=== PATIENT | male | born 1970 | race Caucasian/White ===

== ENCOUNTER → 2019-04-05 20:06 | Outpatient (CLI) | payer OTHER, SELFPAY ==
--- NOTE | 2019-04-05 | DI.MRI.S_ITS ---
PROCEDURE: MR LUMBAR SPINE WO CON INDICATIONS: LOW BACK PAIN TECHNIQUE: Noncontrast sagittal T1 spin echo and T2 fast echo, sagittal STIR, axial T1 and T2 fast spin echo through the lumbar spine. In cases with scoliosis, additional coronal T2 fast spin echo may be performed. COMPARISON: None. FINDINGS: Image quality: Excellent. Alignment and Curvature: There is mild L5-S1 anterolisthesis secondary to bilateral L5 pars interarticularis defects. Bones: Marrow is of normal overall signal. No acute vertebral body compression fractures. Spinal Cord: Conus medullaris terminates at the L1 level. Visualized cord demonstrates normal signal and size. Paraspinous Soft Tissues: No paravertebral masses. L1-L2: Normal appearance. L2-L3: Normal appearance. L3-L4: Normal appearance. L4-L5: Normal appearance. L5-S1: Loss of disc signal. Mild, diffuse disc bulge. No central stenosis. Severe bilateral neural foraminal narrowing with compression of the exiting L5 nerve roots. Focal hypodensities are noted in the posterior annulus compatible with a fissure. IMPRESSION: 1. Grade 1 L5-S1 isthmic spondylolisthesis. 2. Mild L5-S1 degenerative disc disease. 3. No central stenosis. 4. Severe bilateral L5-S1 neural foraminal narrowing with compression of the exiting L5 nerve roots. Dictated by: Fela Espino MD, PhD on 04/06/2019 at 14:51 Approved by: Fela Espino MD, PhD on 04/06/2019 at 14:53
== END ==
PROVIDERS: Visit Provider Family Medicine
DX: M43.16 Spondylolisthesis, lumbar region (principal); M51.36 Other intervertebral disc degeneration, lumbar region
CPT/HCPCS: 72148

== ENCOUNTER → 2024-02-23 08:53 | Outpatient (CLI) | payer OTHER, SELFPAY | PROVIDERS: PCP Physician Assistant Surgical; Referring Provider Physician Assistant Surgical; Visit Provider Surgery | DX: I89.0 Lymphedema, not elsewhere classified (principal); L97.511 Non-pressure chronic ulcer of other part of right foot limited to breakdown of skin; L53.9 Erythematous condition, unspecified; F17.210 Nicotine dependence, cigarettes, uncomplicated | CPT/HCPCS: 29581; 97597; 99203; 99213 ==

== ENCOUNTER → 2024-02-25 08:43 | Outpatient (CLI) | payer OTHER, SELFPAY | PROVIDERS: PCP Physician Assistant Surgical; Referring Provider Physician Assistant Surgical; Visit Provider Surgery | DX: I89.0 Lymphedema, not elsewhere classified (principal); R60.0 Localized edema; L53.9 Erythematous condition, unspecified | CPT/HCPCS: 29581 ==

== ENCOUNTER → 2024-03-01 09:45 | Outpatient (CLI) | payer OTHER, SELFPAY | PROVIDERS: PCP Physician Assistant Surgical; Referring Provider Physician Assistant Surgical; Visit Provider Surgery | DX: L97.521 Non-pressure chronic ulcer of other part of left foot limited to breakdown of skin (principal); L53.9 Erythematous condition, unspecified; F17.210 Nicotine dependence, cigarettes, uncomplicated | CPT/HCPCS: 29581; 99213 ==

== ENCOUNTER → 2024-03-08 09:44 | Outpatient (CLI) | payer OTHER, SELFPAY | LOC: WC 09:44 | PROVIDERS: Family Provider Physician Assistant; PCP Physician Assistant Surgical; Referring Provider Physician Assistant Surgical; Visit Provider Surgery | DX: I89.0 Lymphedema, not elsewhere classified (principal); F17.210 Nicotine dependence, cigarettes, uncomplicated | CPT/HCPCS: 99213 ==

== ENCOUNTER 2024-05-23 13:00 | Outpatient (RCR) | payer OTHER, SELFPAY ==
--- NOTE | 2024-04-14 16:46 | PT.OIE ---
Current Diagnoses Lymphedema, not elsewhere classified (04/14/24) Soft tissue disorder, unspecified (04/14/24) Difficulty in walking, not elsewhere classified (04/14/24) Visit Care Team Role Provider Type Leigha Parisi PA-C Primary Care Provider Non-Staff Specialty: [facility] [address] [facility] [address], [place], [address] Fax: Email: Chele De La Paz PA-C Family Provider Non-Staff Specialty: Medical Address: [address] [place], [address] Email: Luis Miguel Madsen MD Attending Provider Physician Referring Provider Specialty: Wound Care Address: [address] [place] [address], [id number] Email: [email or web address] Physical Therapy Initial Evaluation PT-OP-A Visit Information Start: 04/14/24 08:04 Freq: Status: Active Protocol: Document 04/14/24 09:01 [facility] (Rec: 04/14/24 09:46 [facility] [id number]) Out-Patient Physical Therapy Visit Information Visit Information Visit Type Initial Evaluation Visit Start Time 08:15 Visit Stop Time 09:45 Visit Number 1 Number of SR. STRATEGIC SOURCING MANAGER Visits 0 Evaluation Information Evaluation Date 04/14/24 PT-OP-B Current Condition Start: 04/14/24 08:04 Freq: Status: Active Protocol: Document 04/14/24 09:01 [facility] (Rec: 04/14/24 09:46 [facility] [id number]) Current Condition History of Current Condition Onset Date December 2023 Current Complaints christie LE swelling History of Current Condition Acute onset swelling christie LE's an scrotum. , has seen pompom maker (negative for any cardiac involvement), vascular specialist (tests negative, veins good, flow good), CT scans negative christie groin lymph nodes enlarged, have decreased in size some per cancer doc. Another scan in 6 months. Sees open tenter operator 05/02/24 due to low calcium levels. Did have scrotal edema; wore jock strap; scrotal swelling better . Feet still very swollen, legs red, hips still swollen, states now has difficulty fitting in seats. . Uses a cane at times for walking. Has compression stockings (knee high) and Juzo wraps (lower legs only). Cant wear shoes. 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 Trying to wear compression, trying to increase his walking. Prior Treatments and Tests as above Future Testing and Treatments Planned open tenter operator 05/02/24 Treatment Goals Patient/Caregiver Goals decrease lymphedema, be able to return to work. Prior Functional Status Baseline Function- ADL's Independent Baseline Function- Mobility Independent Baseline Function- Gait indep, no restrictions or swelling Current Functional Impairments (Reported) Functional Limitations- ADL's increased time Functional Limitations- Mobility/Gait limited walking due to weight and discomfort of legs, trying to walk more as tolerated but challenging Functional Limitations- Work/School unable to work at this time PT-OP-C Subjective Start: 04/14/24 08:04 Freq: Status: Active Protocol: Document 04/14/24 09:01 [facility] (Rec: 04/14/24 16:41 [facility] [id number]) Patient Questionnaires Lymphedema Life Impact Score Lymphedema Score 49 OP-PT Pain Assessment Location christie LE Intensity 6 Scale Used Numeric (0 - 10) PT-OP-G Mobility & Gait Start: 04/14/24 08:04 Freq: Status: Active Protocol: Document 04/14/24 09:01 [facility] (Rec: 04/14/24 16:41 [facility] [id number]) OP Gait Assessment Gait Gait Assistance Required: Independent Assistive Devices Assistive Device None,Straight Cane Gait Deviations General Gait Pattern Decreased Stride Length, Decreased Feet Clearance PT-OP-H Neuro Start: 04/14/24 08:04 Freq: Status: Active Protocol: Document 04/14/24 09:01 [facility] (Rec: 04/14/24 16:41 [facility] [id number]) Sensation Evaluation Gross Sensation Gross Sensation Left LE Impaired,Right LE Impaired Sensation Description Paresthesia PT-OP-J Posture/Palpation/Skin Start: 04/14/24 08:04 Freq: Status: Active Protocol: Document 04/14/24 09:01 [facility] (Rec: 04/14/24 16:41 [facility] [id number]) Palpation Assessment Location christie LE's Palpation Findings Edema Palpation Details redness, no increased warmth Skin Assessment Edema Assessment christie LE's Edema Type Pitting Edema Degree 4+ Edema Appearance Discolored,Shiny,Taut,Weeping Subjective Edema Description Pain,Tightness Comments reports scratched his left leg a couple days ago and has been weeping fluid; asked Dr. Madsen to come take a look at his leg. Dr. Madsen advised him on wound care and advised him to schedule with wound care clinic PT-OP-K Range of Motion Start: 04/14/24 08:04 Freq: Status: Active Protocol: Document 04/14/24 09:01 [facility] (Rec: 04/14/24 16:41 [facility] [id number]) Hip Goniometric Range of Motion Hip christie Hip ROM WFL No Comments mild decrease all motions Hip ROM Limitations Hip ROM Limitations Swelling Knee Goniometric Range of Motion Knee christie Knee ROM WFL No Knee ROM Limitations Knee ROM Limitations Swelling Ankle and Foot Goniometric Range of Motion Ankle and Foot christie Ankle/Foot ROM WFL No Dorsiflexion with Knee Flexed 5 Dorsiflexion with Knee Extended 0 Plantarflexion 15 Inversion 20 Ankle and Foot ROM Limitations ROM Limitations Soft Tissue Tightness,Swelling PT-OP-N Lymphedema Start: 04/14/24 08:04 Freq: Status: Active Protocol: Document 04/14/24 09:01 [facility] (Rec: 04/14/24 09:46 [facility] [id number]) Lymphedema Measurements Lower Extremity Circumference Measurements right MT Heads 26.8 cm Mid-foot 29.5 cm Medial Malleolus 35.7 cm 10 cm From Medial Malleolus 32.8 cm 20 cm From Medial Malleolus 45.8 cm 30 cm From Medial Malleolus 51 cm 40 cm From Medial Malleolus 44.7 cm 50 cm From Medial Malleolus 54.4 cm 60 cm From Medial Malleolus 61.3 cm 70 cm From Medial Malleolus 73.8 cm 80 cm From Medial Malleolus 81.6 cm Knee Joint 52 cm left MT Heads 28.2 cm Mid-foot 29.6 cm Medial Malleolus 36.7 cm 10 cm From Medial Malleolus 31.8 cm 20 cm From Medial Malleolus 43.8 cm 30 cm From Medial Malleolus 51.9 cm 40 cm From Medial Malleolus 46.2 cm 50 cm From Medial Malleolus 54.5 cm 60 cm From Medial Malleolus 63.8 cm 70 cm From Medial Malleolus 71.3 cm 80 cm From Medial Malleolus 79.3 cm Knee Joint 50.9 cm - waist 133.4 hips 138 Comments Lymphedema Comments Patient reports scrotal edema resolved right now, continues to monitor PT-OP-Q Treatments Start: 04/14/24 08:04 Freq: Status: Active Protocol: Document 04/14/24 09:01 [facility] (Rec: 04/14/24 16:41 [facility] [id number]) Lymphedema Treatment Manual Lymphatic Drainage Location christie LE's Duration 12 min Comments instruction Sequential Lymphedema Exercises Location instructed and issued handout Compression Garment Assessment Compression Garment Assessment Details discussed options, advised to obtain compression shorts to help with proximal swelling and hold up lymphedema bandages Patient Education Lymphedema Pathology instructed Lymphedema Prevention instructed and issued handout Lymphedema Precautions instructed and issued handout Compression Garments instructed and issued handout Self Manual Lymphatic Drainage instructed and issued handout Sequential Lymphedema Exercises instructed and issued handout PT-OP-T Assessment and Plan Start: 04/14/24 08:04 Freq: Status: Active Protocol: Document 04/14/24 09:01 [facility] (Rec: 04/14/24 16:41 [facility] [id number]) Physical Therapy Assessment Rehab Potential Rehabilitation Potential Good Evaluation Complexity Number of Personal Factors/Comorbidities 1-2 Number of Body Systems Impaired 3 Clinical Presentation at Evaluation Evolving Impairments Impairments Activity Tolerance,Edema,ROM Goals Three Impairment limited walking due to lymphedema, frequently uses cane, unable to work Short Term Goal (STG) Patient will be able to walk for 30 minutes without device without difficulty STG Duration 05/17/24 Pediatric Nephrologist Goal (LTG) Patient will be able to stand and walk sufficient to be able to return to work LTG Duration 07/15/24 Two Impairment lymphedema life impact scale 49% Short Term Goal (STG) decrease lymphedema life impact scale to no greater than 35% STG Duration 05/17/24 Pediatric Nephrologist Goal (LTG) decrease lymphedema life impact scale to no greater than 15% as measure of reduced lymphedema, improved function and quality of life. LTG Duration 07/15/24 One Impairment lymphedema christie LE's Short Term Goal (STG) Patient will be instructed in all aspects of lymphedema self -care to include skin care, elevation, self-massage, self- bandaging/compression options, and lymphedema exercises. STG Duration 05/17/24 Pediatric Nephrologist Goal (LTG) Decrease patient?s lymphedema to a stable level (no increase or decrease greater than 1 cm over the course of 1 week), patient to be independent with all aspects of self-care for lymphedema, and will obtain appropriate compression garment for lymphedema management in the home. LTG Duration 07/15/24 Assessment Summary Assessment Patient presents to PT with function-limiting lymphedema bilateral LE's from toes to hips of unknown cause. Had scrotal edema but reports that has resolved due to wound care staff recommending Juzo jock strap. Had christie LE open wounds which have resolved except for new onset wound left godinez. Due to lymphedema in upper legs and hips reports it is not difficult for him to fit into chairs, his ROM is limited in christie LE's all joints due to lymphedema, and his walking is very limited due to the weight of his legs. He has had multiple medical tests which have been negative except for CT showing enlarged lymph nodes in his groin, most recent CT has shown decrease in lymph node size. Is being watched by an oncologist. Next planned test is open tenter operator 05/02/24. States he has knee high compression stockings and lower leg Juzo compression alternative velcro wraps, but nothing for feet but didn't wear to PT, no compression more proximal except has worn Juzo jock strap for scrotal edema which helped to resolve that swelling. Feel patient will need full length compression in his LE's to waist for best lymphedema management given his presentation. Also feel he may benefit from sequential pneumatic pump to assist with self management in the home. New weeping open wound anterior left godinez due to patient itching dry skin, has been referred back to wound care clinic. Feel patient will benefit from PT for lymphedema management. Initiated Complete Decongestive Therapy today. POC was discussed and patient was in agreement. Physical Therapy Plan Frequency and Duration Frequency of Treatment 20 visits Duration of treatment (weeks) 12 Plan of Care Start Date 04/14/24 Plan of Care End Date 07/15/24 Therapeutic Interventions Therapeutic Interventions Home Exercise Program, Lymphedema Management,Manual Therapy,Patient/Caregiver Education,Self-Care/Home Management,Soft Tissue Mobilization,Therapeutic Activities,Therapeutic Exercises Modalities Vasopneumatic Devices Next Visit Focus/Plan Next Note Type Treatment Note Next Visit Plan Assess response to lymphedema bandaging, continue CDT. Assess current compression garments if brings in.
--- NOTE | 2024-04-14 16:46 | PT.OPPOC ---
Physical, Occupational & Speech Therapy At [facility] Current Diagnoses Lymphedema, not elsewhere classified (04/14/24) Soft tissue disorder, unspecified (04/14/24) Difficulty in walking, not elsewhere classified (04/14/24) Visit Care Team Role Provider Type Leigha Parisi PA-C Primary Care Provider Non-Staff Specialty: Medical Address: [address] [place] [address], [facility], [place], [address] Fax: Email: Chele DeL a Paz PA-C Family Provider Non-Staff Specialty: Medical Address: [address] [place], [address] Email: Luis Miguel Madsen MD Attending Provider Physician Referring Provider Specialty: Wound Care Address: [address] [place] [address], [address] Email: [email or web address] Plan Of Care PT-OP-B Current Condition Start: 04/14/24 08:04 Freq: Status: Active Protocol: Document 04/14/24 09:01 [facility] (Rec: 04/14/24 09:46 [facility] [id number]) Current Condition History of Current Condition Onset Date December 2023 Current Complaints christie LE swelling History of Current Condition Acute onset swelling christie LE's an scrotum. , has seen yarn skeins examiner (negative for any cardiac involvement), vascular specialist (tests negative, veins good, flow good), CT scans negative christie groin lymph nodes enlarged, have decreased in size some per cancer doc. Another scan in 6 months. Sees crystal calibrator 05/02/24 due to low calcium levels. Did have scrotal edema; wore jock strap; scrotal swelling better . Feet still very swollen, legs red, hips still swollen, states now has difficulty fitting in seats. . Uses a cane at times for walking. Has compression stockings (knee high) and Juzo wraps (lower legs only). Cant wear shoes. 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 Trying to wear compression, trying to increase his walking. Prior Treatments and Tests as above Future Testing and Treatments Planned crystal calibrator 05/02/24 Treatment Goals Patient/Caregiver Goals decrease lymphedema, be able to return to work. Prior Functional Status Baseline Function- ADL's Independent Baseline Function- Mobility Independent Baseline Function- Gait indep, no restrictions or swelling Current Functional Impairments (Reported) Functional Limitations- ADL's increased time Functional Limitations- Mobility/Gait limited walking due to weight and discomfort of legs, trying to walk more as tolerated but challenging Functional Limitations- Work/School unable to work at this time PT-OP-T Assessment and Plan Start: 04/14/24 08:04 Freq: Status: Active Protocol: Document 04/14/24 09:01 [facility] (Rec: 04/14/24 16:41 [facility] [id number]) Physical Therapy Assessment Rehab Potential Rehabilitation Potential Good Evaluation Complexity Number of Personal Factors/Comorbidities 1-2 Number of Body Systems Impaired 3 Clinical Presentation at Evaluation Evolving Impairments Impairments Activity Tolerance,Edema,ROM Goals Three Impairment limited walking due to lymphedema, frequently uses cane, unable to work Short Term Goal (STG) Patient will be able to walk for 30 minutes without device without difficulty STG Duration 05/17/24 Jail Goal (LTG) Patient will be able to stand and walk sufficient to be able to return to work LTG Duration 07/15/24 Two Impairment lymphedema life impact scale 49% Short Term Goal (STG) decrease lymphedema life impact scale to no greater than 35% STG Duration 05/17/24 Jail Goal (LTG) decrease lymphedema life impact scale to no greater than 15% as measure of reduced lymphedema, improved function and quality of life. LTG Duration 07/15/24 One Impairment lymphedema christie LE's Short Term Goal (STG) Patient will be instructed in all aspects of lymphedema self -care to include skin care, elevation, self-massage, self- bandaging/compression options, and lymphedema exercises. STG Duration 05/17/24 Jail Goal (LTG) Decrease patient?s lymphedema to a stable level (no increase or decrease greater than 1 cm over the course of 1 week), patient to be independent with all aspects of self-care for lymphedema, and will obtain appropriate compression garment for lymphedema management in the home. LTG Duration 07/15/24 Assessment Summary Assessment Patient presents to PT with function-limiting lymphedema bilateral LE's from toes to hips of unknown cause. Had scrotal edema but reports that has resolved due to wound care staff recommending Juzo jock strap. Had christie LE open wounds which have resolved except for new onset wound left godinez. Due to lymphedema in upper legs and hips reports it is not difficult for him to fit into chairs, his ROM is limited in christie LE's all joints due to lymphedema, and his walking is very limited due to the weight of his legs. He has had multiple medical tests which have been negative except for CT showing enlarged lymph nodes in his groin, most recent CT has shown decrease in lymph node size. Is being watched by an oncologist. Next planned test is crystal calibrator 05/02/24. States he has knee high compression stockings and lower leg Juzo compression alternative velcro wraps, but nothing for feet but didn't wear to PT, no compression more proximal except has worn Juzo jock strap for scrotal edema which helped to resolve that swelling. Feel patient will need full length compression in his LE's to waist for best lymphedema management given his presentation. Also feel he may benefit from sequential pneumatic pump to assist with self management in the home. New weeping open wound anterior left godinez due to patient itching dry skin, has been referred back to wound care clinic. Feel patient will benefit from PT for lymphedema management. Initiated Complete Decongestive Therapy today. POC was discussed and patient was in agreement. Physical Therapy Plan Frequency and Duration Frequency of Treatment 20 visits Duration of treatment (weeks) 12 Plan of Care Start Date 04/14/24 Plan of Care End Date 07/15/24 Therapeutic Interventions Therapeutic Interventions Home Exercise Program, Lymphedema Management,Manual Therapy,Patient/Caregiver Education,Self-Care/Home Management,Soft Tissue Mobilization,Therapeutic Activities,Therapeutic Exercises Modalities Vasopneumatic Devices Next Visit Focus/Plan Next Note Type Treatment Note Next Visit Plan Assess response to lymphedema bandaging, continue CDT. Assess current compression garments if brings in. Plan of Care Dates Plan of Care Start Date 04/14/24 Plan of Care End Date 07/15/24 Electronically Signed by: Judi Hernandez, PT 04/14/24 3340 If you are in agreement with this Plan of Care, please return a signed and dated copy. I have reviewed this Plan of Care and certify that the skilled therapy services above are required to meet the patient?s needs. Physician Signature Date Printed Name and Credentials Clinical Instructor Signature Printed Name and Credentials
--- NOTE | 2024-04-20 11:52 | PT.OTN ---
Current Diagnoses Lymphedema, not elsewhere classified (04/20/24) Soft tissue disorder, unspecified (04/20/24) Difficulty in walking, not elsewhere classified (04/20/24) Physical Therapy Treatment Note PT-OP-A Visit Information Start: 04/14/24 08:04 Freq: Status: Active Protocol: Document 04/20/24 10:27 [facility] (Rec: 04/20/24 11:01 [facility] [id number]) Out-Patient Physical Therapy Visit Information Visit Information Visit Type Treatment Note Visit Start Time 10: Visit Stop Time 12:00 Visit Number 2 Evaluation Information Evaluation Date 04/14/24 PT-OP-B Current Condition Start: 04/14/24 08:04 Freq: Status: Active Protocol: Document 04/20/24 10:27 [facility] (Rec: 04/20/24 11:01 [facility] [id number]) Current Condition History of Current Condition Onset Date December 2023 Current Complaints christie LE swelling History of Current Condition Acute onset swelling christie LE's an scrotum. , has seen customer account manager (negative for any cardiac involvement), vascular specialist (tests negative, veins good, flow good), CT scans negative christie groin lymph nodes enlarged, have decreased in size some per cancer doc. Another scan in 6 months. Sees clinic coordinator 05/02/24 due to low calcium levels. Did have scrotal edema; wore jock strap; scrotal swelling better . Feet still very swollen, legs red, hips still swollen, states now has difficulty fitting in seats. . Uses a cane at times for walking. Has compression stockings (knee high) and Juzo wraps (lower legs only). Cant wear shoes. 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 Trying to wear compression, trying to increase his walking. Prior Treatments and Tests as above Future Testing and Treatments Planned clinic coordinator 05/02/24 Treatment Goals Patient/Caregiver Goals decrease lymphedema, be able to return to work. PT-OP-C Subjective Start: 04/14/24 08:04 Freq: Status: Active Protocol: Document 04/20/24 10:27 [facility] (Rec: 04/20/24 11:01 [facility] [id number]) OP-PT Subjective Patient Comments Patient Comments Ordered compression shorts, haven't come yet. Let bandaging on until Thursday, couldn't rewrap. Feet started to swell after. Wasn't sure if toe wraps helpful. Is going to order Juzo foot wraps but doesn't know size, needs PT help. When took bandaging off noticed significant decrease in swelling. PT-OP-G Mobility & Gait Start: 04/14/24 08:04 Freq: Status: Active Protocol: Document 04/14/24 09:01 [facility] (Rec: 04/14/24 16:41 [facility] [id number]) OP Gait Assessment Gait Gait Assistance Required: Independent Assistive Devices Assistive Device None,Straight Cane Gait Deviations General Gait Pattern Decreased Stride Length, Decreased Feet Clearance PT-OP-H Neuro Start: 04/14/24 08:04 Freq: Status: Active Protocol: Document 04/14/24 09:01 [facility] (Rec: 04/14/24 16:41 [facility] [id number]) Sensation Evaluation Gross Sensation Gross Sensation Left LE Impaired,Right LE Impaired Sensation Description Paresthesia PT-OP-J Posture/Palpation/Skin Start: 04/14/24 08:04 Freq: Status: Active Protocol: Document 04/14/24 09:01 [facility] (Rec: 04/14/24 16:41 [facility] [id number]) Palpation Assessment Location christie LE's Palpation Findings Edema Palpation Details redness, no increased warmth Skin Assessment Edema Assessment christie LE's Edema Type Pitting Edema Degree 4+ Edema Appearance Discolored,Shiny,Taut,Weeping Subjective Edema Description Pain,Tightness Comments reports scratched his left leg a couple days ago and has been weeping fluid; asked Dr. Madsen to come take a look at his leg. Dr. Madsen advised him on wound care and advised him to schedule with wound care clinic Other Assessments Skin Assessment Comments dry, flaky skin anterior shins , hyperkeratosis, 2 cm by 3cm open wound anterior left godinez weeping yellowish thin fluid, reddish discoloration lower legs and feet without excess warmth. Fibrosis christie lower legs. PT-OP-K Range of Motion Start: 04/14/24 08:04 Freq: Status: Active Protocol: Document 04/14/24 09:01 [facility] (Rec: 04/14/24 16:41 [facility] [id number]) Hip Goniometric Range of Motion Hip christie Hip ROM WFL No Comments mild decrease all motions Hip ROM Limitations Hip ROM Limitations Swelling Knee Goniometric Range of Motion Knee christie Knee ROM WFL No Knee ROM Limitations Knee ROM Limitations Swelling Ankle and Foot Goniometric Range of Motion Ankle and Foot christie Ankle/Foot ROM WFL No Dorsiflexion with Knee Flexed 5 Dorsiflexion with Knee Extended 0 Plantarflexion 15 Inversion 20 Ankle and Foot ROM Limitations ROM Limitations Soft Tissue Tightness,Swelling PT-OP-N Lymphedema Start: 04/14/24 08:04 Freq: Status: Active Protocol: Document 04/20/24 10:27 [facility] (Rec: 04/20/24 11:01 [facility] [id number]) Lymphedema Measurements Lower Extremity Circumference Measurements right MT Heads 25.8 cm Mid-foot 28.8 cm Medial Malleolus 37.2 cm 10 cm From Medial Malleolus 32.8 cm 20 cm From Medial Malleolus 45.7 cm 30 cm From Medial Malleolus 50.5 cm 40 cm From Medial Malleolus 44.3 cm 50 cm From Medial Malleolus 53.9 cm 60 cm From Medial Malleolus 61.3 cm 70 cm From Medial Malleolus 75 cm 80 cm From Medial Malleolus 83 cm Knee Joint 50.1 cm left MT Heads 27.7 cm Mid-foot 28.7 cm Medial Malleolus 34.9 cm 10 cm From Medial Malleolus 31.5 cm 20 cm From Medial Malleolus 43.3 cm 30 cm From Medial Malleolus 50.3 cm 40 cm From Medial Malleolus 44.4 cm 50 cm From Medial Malleolus 53.7 cm 60 cm From Medial Malleolus 63.8 cm 70 cm From Medial Malleolus 75.7 cm 80 cm From Medial Malleolus 83.3 cm Knee Joint 47 cm PT-OP-Q Treatments Start: 04/14/24 08:04 Freq: Status: Active Protocol: Document 04/20/24 10:27 [facility] (Rec: 04/20/24 11:52 [facility] [id number]) Lymphedema Treatment Manual Lymphatic Drainage Location christie LE's Duration 45 Lymphedema Wrapping Body Location christie LE's Materials Tricofix size G, Artiflex (2), Komprex kidneys, Comprilan (6 ,8, 10), trial no toe wraps today. Patient compression shorts should come tomorrow. Consider upper leg bandaging. Sequential Lymphedema Exercises Location reviewed Compression Garment Assessment Compression Garment Assessment Details Patient did not bring Patient Education Lymphedema Pathology reviewed Lymphedema Prevention reviewed Lymphedema Precautions reviewed Compression Garments reviewed Self Manual Lymphatic Drainage reviewed Sequential Lymphedema Exercises reviewed PT-OP-T Assessment and Plan Start: 04/14/24 08:04 Freq: Status: Active Protocol: Document 04/20/24 10:27 [facility] (Rec: 04/20/24 11:01 [facility] [id number]) Physical Therapy Assessment Impairments Impairments Activity Tolerance,Edema,ROM Goals Three Impairment limited walking due to lymphedema, frequently uses cane, unable to work Short Term Goal (STG) Patient will be able to walk for 30 minutes without device without difficulty STG Duration 05/17/24 Seam Stayer Goal (LTG) Patient will be able to stand and walk sufficient to be able to return to work LTG Duration 07/15/24 Two Impairment lymphedema life impact scale 49% Short Term Goal (STG) decrease lymphedema life impact scale to no greater than 35% STG Duration 05/17/24 Usp Goal (LTG) decrease lymphedema life impact scale to no greater than 15% as measure of reduced lymphedema, improved function and quality of life. LTG Duration 07/15/24 One Impairment lymphedema christie LE's Short Term Goal (STG) Patient will be instructed in all aspects of lymphedema self -care to include skin care, elevation, self-massage, self- bandaging/compression options, and lymphedema exercises. STG Duration 05/17/24 Usp Goal (LTG) Decrease patient?s lymphedema to a stable level (no increase or decrease greater than 1 cm over the course of 1 week), patient to be independent with all aspects of self-care for lymphedema, and will obtain appropriate compression garment for lymphedema management in the home. LTG Duration 07/15/24 Assessment Summary Assessment Significant decrease in circumferential measurements noted today despite not being bandaged since Thursday, has been using Juzo wraps lower legs, going to order Juzo wraps for feet. Physical Therapy Plan Frequency and Duration Frequency of Treatment 20 visits Duration of treatment (weeks) 12 Plan of Care Start Date 04/14/24 Plan of Care End Date 07/15/24 Therapeutic Interventions Therapeutic Interventions Home Exercise Program, Lymphedema Management,Manual Therapy,Patient/Caregiver Education,Self-Care/Home Management,Soft Tissue Mobilization,Therapeutic Activities,Therapeutic Exercises Modalities Vasopneumatic Devices Next Visit Focus/Plan Next Note Type Treatment Note Next Visit Plan Continue CDT. ASsess fit of compression tights if received , continue patient training.
--- NOTE | 2024-04-21 10:47 | PT.OTN ---
Current Diagnoses Lymphedema, not elsewhere classified (04/21/24) Soft tissue disorder, unspecified (04/21/24) Difficulty in walking, not elsewhere classified (04/21/24) Physical Therapy Treatment Note PT-OP-A Visit Information Start: 04/14/24 08:04 Freq: Status: Active Protocol: Document 04/21/24 08:10 [facility] (Rec: 04/21/24 09:06 [facility] [id number]) Out-Patient Physical Therapy Visit Information Visit Information Visit Type Treatment Note Visit Start Time 08:15 Visit Stop Time 09:45 Visit Number 3 Evaluation Information Evaluation Date 04/14/24 PT-OP-B Current Condition Start: 04/14/24 08:04 Freq: Status: Active Protocol: Document 04/21/24 08:10 [facility] (Rec: 04/21/24 09:06 [facility] [id number]) Current Condition History of Current Condition Onset Date December 2023 Current Complaints christie LE swelling History of Current Condition Acute onset swelling christie LE's an scrotum. , has seen video game developer (negative for any cardiac involvement), vascular specialist (tests negative, veins good, flow good), CT scans negative christie groin lymph nodes enlarged, have decreased in size some per cancer doc. Another scan in 6 months. Sees classification officer 05/02/24 due to low calcium levels. Did have scrotal edema; wore jock strap; scrotal swelling better . Feet still very swollen, legs red, hips still swollen, states now has difficulty fitting in seats. . Uses a cane at times for walking. Has compression stockings (knee high) and Juzo wraps (lower legs only). Cant wear shoes. 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 Trying to wear compression, trying to increase his walking. Prior Treatments and Tests as above Future Testing and Treatments Planned classification officer 05/02/24 PT-OP-C Subjective Start: 04/14/24 08:04 Freq: Status: Active Protocol: Document 04/21/24 08:10 [facility] (Rec: 04/21/24 09:06 [facility] [id number]) OP-PT Subjective Patient Comments Patient Comments Patient comes to PT still in bandages, brought Tubigrip, old compression stockings, and newer tighter . Compression tights should be here today, compresson wraps for feet on Thursday. PT-OP-G Mobility & Gait Start: 04/14/24 08:04 Freq: Status: Active Protocol: Document 04/14/24 09:01 [facility] (Rec: 04/14/24 16:[address] [facility] [id number]) OP Gait Assessment Gait Gait Assistance Required: Independent Assistive Devices Assistive Device None,Straight Cane Gait Deviations General Gait Pattern Decreased Stride Length, Decreased Feet Clearance PT-OP-H Neuro Start: 04/14/24 08:04 Freq: Status: Active Protocol: Document 04/14/24 09:01 [facility] (Rec: 04/14/24 16:[address] [facility] [id number]) Sensation Evaluation Gross Sensation Gross Sensation Left LE Impaired,Right LE Impaired Sensation Description Paresthesia PT-OP-J Posture/Palpation/Skin Start: 04/14/24 08:04 Freq: Status: Active Protocol: Document 04/14/24 09:01 [facility] (Rec: 04/14/24 16:[address] [facility] [id number]) Palpation Assessment Location christie LE's Palpation Findings Edema Palpation Details redness, no increased warmth Skin Assessment Edema Assessment christie LE's Edema Type Pitting Edema Degree 4+ Edema Appearance Discolored,Shiny,Taut,Weeping Subjective Edema Description Pain,Tightness Comments reports scratched his left leg a couple days ago and has been weeping fluid; asked Dr. Madsen to come take a look at his leg. Dr. Madsen advised him on wound care and advised him to schedule with wound care clinic Other Assessments Skin Assessment Comments dry, flaky skin anterior shins , hyperkeratosis, 2 cm by 3cm open wound anterior left godinez weeping yellowish thin fluid, reddish discoloration lower legs and feet without excess warmth. Fibrosis christie lower legs. PT-OP-K Range of Motion Start: 04/14/24 08:04 Freq: Status: Active Protocol: Document 04/14/24 09:01 [facility] (Rec: 04/14/24 16:41 [facility] [id number]) Hip Goniometric Range of Motion Hip christie Hip ROM WFL No Comments mild decrease all motions Hip ROM Limitations Hip ROM Limitations Swelling Knee Goniometric Range of Motion Knee christie Knee ROM WFL No Knee ROM Limitations Knee ROM Limitations Swelling Ankle and Foot Goniometric Range of Motion Ankle and Foot christie Ankle/Foot ROM WFL No Dorsiflexion with Knee Flexed 5 Dorsiflexion with Knee Extended 0 Plantarflexion 15 Inversion 20 Ankle and Foot ROM Limitations ROM Limitations Soft Tissue Tightness,Swelling PT-OP-N Lymphedema Start: 04/14/24 08:04 Freq: Status: Active Protocol: Document 04/21/24 08:10 [facility] (Rec: 04/21/24 09:06 [facility] [id number]) Lymphedema Measurements Lower Extremity Circumference Measurements right MT Heads 26.7 cm Mid-foot 27 cm Medial Malleolus 33.3 cm 10 cm From Medial Malleolus 29.7 cm 20 cm From Medial Malleolus 41.5 cm 30 cm From Medial Malleolus 47.7 cm 40 cm From Medial Malleolus 43.3 cm 50 cm From Medial Malleolus 53.3 cm 60 cm From Medial Malleolus 64 cm 70 cm From Medial Malleolus 76.5 cm 80 cm From Medial Malleolus 85 cm Knee Joint 48.8 cm left MT Heads 26.8 cm Mid-foot 27.7 cm Medial Malleolus 33.8 cm 10 cm From Medial Malleolus 29.4 cm 20 cm From Medial Malleolus 43.3 cm 30 cm From Medial Malleolus 48.3 cm 40 cm From Medial Malleolus 45.7 cm 50 cm From Medial Malleolus 53.3 cm 60 cm From Medial Malleolus 64.2 cm 70 cm From Medial Malleolus 75.4 cm 80 cm From Medial Malleolus 82.7 cm Knee Joint 52 cm PT-OP-Q Treatments Start: 04/14/24 08:04 Freq: Status: Active Protocol: Document 04/21/24 08:10 [facility] (Rec: 04/21/24 10:47 [facility] [id number]) Lymphedema Treatment Manual Lymphatic Drainage Location christie LE's Duration 45 Comments sequential pneumatic pump at 40 mm Hg on side opposite to one being worked on. Lymphedema Wrapping Body Location christie LE's MTP's to upper thighs Materials Tricofix size G, Artiflex (24) , Komprex kidneys, Comprilan ( 6,8, 10, 10, 12x2), Patient compression shorts should come later today and patient advised to put on over for proximal compression and to hold bandages up PT-OP-T Assessment and Plan Start: 04/14/24 08:04 Freq: Status: Active Protocol: Document 04/21/24 08:10 [facility] (Rec: 04/21/24 09:06 [facility] [id number]) Physical Therapy Assessment Goals Three Impairment limited walking due to lymphedema, frequently uses cane, unable to work Short Term Goal (STG) Patient will be able to walk for 30 minutes without device without difficulty STG Duration 05/17/24 Service Crew Supervisor Goal (LTG) Patient will be able to stand and walk sufficient to be able to return to work LTG Duration 07/15/24 Two Impairment lymphedema life impact scale 49% Short Term Goal (STG) decrease lymphedema life impact scale to no greater than 35% STG Duration 05/17/24 Snf Goal (LTG) decrease lymphedema life impact scale to no greater than 15% as measure of reduced lymphedema, improved function and quality of life. LTG Duration 07/15/24 One Impairment lymphedema christie LE's Short Term Goal (STG) Patient will be instructed in all aspects of lymphedema self -care to include skin care, elevation, self-massage, self- bandaging/compression options, and lymphedema exercises. STG Duration 05/17/24 Snf Goal (LTG) Decrease patient?s lymphedema to a stable level (no increase or decrease greater than 1 cm over the course of 1 week), patient to be independent with all aspects of self-care for lymphedema, and will obtain appropriate compression garment for lymphedema management in the home. LTG Duration 07/15/24 Assessment Summary Assessment Good improvement in circumferentialmeasurements distally, increase at left knee and increased proximimally. Bandaged to upper thighs today, patient to get compression shorts and advised to put on to hold bandages up as well as provide proximal compression. Also advised to call [facility] to schedule an appointment for fitting, problem solving compression. Physical Therapy Plan Frequency and Duration Frequency of Treatment 20 visits Duration of treatment (weeks) 12 Plan of Care Start Date 04/14/24 Plan of Care End Date 07/15/24 Therapeutic Interventions Therapeutic Interventions Home Exercise Program, Lymphedema Management,Manual Therapy,Patient/Caregiver Education,Self-Care/Home Management,Soft Tissue Mobilization,Therapeutic Activities,Therapeutic Exercises Modalities Vasopneumatic Devices Next Visit Focus/Plan Next Note Type Treatment Note Next Visit Plan Continue CDT. ASsess fit of compression tights if received , continue patient training.
--- NOTE | 2024-04-25 12:00 | PT-IP ANOTE ---
Patient cancelled PT appointment due to not feeling well.
--- NOTE | 2024-04-27 16:13 | PT.OTN ---
Current Diagnoses Lymphedema, not elsewhere classified (04/27/24) Soft tissue disorder, unspecified (04/27/24) Difficulty in walking, not elsewhere classified (04/27/24) Physical Therapy Treatment Note PT-OP-A Visit Information Start: 04/14/24 08:04 Freq: Status: Active Protocol: Document 04/27/24 14:29 [facility] (Rec: 04/27/24 15:04 [facility] [id number]) Out-Patient Physical Therapy Visit Information Visit Information Visit Type Treatment Note Visit Start Time 14:29 Visit Stop Time 16:00 Visit Number 4 PT-OP-B Current Condition Start: 04/14/24 08:04 Freq: Status: Active Protocol: Document 04/27/24 14:29 [facility] (Rec: 04/27/24 15:04 [facility] [id number]) Current Condition History of Current Condition Onset Date December 2023 Current Complaints christie LE swelling History of Current Condition Acute onset swelling christie LE's an scrotum. , has seen experimental mechanic electrical (negative for any cardiac involvement), vascular specialist (tests negative, veins good, flow good), CT scans negative christie groin lymph nodes enlarged, have decreased in size some per cancer doc. Another scan in 6 months. Sees outreach associate 05/02/24 due to low calcium levels. Did have scrotal edema; wore jock strap; scrotal swelling better . Feet still very swollen, legs red, hips still swollen, states now has difficulty fitting in seats. . Uses a cane at times for walking. Has compression stockings (knee high) and Juzo wraps (lower legs only). Cant wear shoes. 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 Trying to wear compression, trying to increase his walking. Prior Treatments and Tests as above Future Testing and Treatments Planned outreach associate 05/02/24 Treatment Goals Patient/Caregiver Goals decrease lymphedema, be able to return to work. PT-OP-C Subjective Start: 04/14/24 08:04 Freq: Status: Active Protocol: Document 04/27/24 14:29 [facility] (Rec: 04/27/24 15:04 [facility] [id number]) OP-PT Subjective Patient Comments Patient Comments Took bandages off Thursday, got velcro foot wraps. Made an appointment with [facility] for fitting but didn't want to wait. Put on velcro foot wraps but not lower leg wraps, had increased fluid lower legs with blistering and open area. Was unable to self bandage. PT-OP-G Mobility & Gait Start: 04/14/24 08:04 Freq: Status: Active Protocol: Document 04/14/24 09:01 [facility] (Rec: 04/14/24 16:41 [facility] [id number]) OP Gait Assessment Gait Gait Assistance Required: Independent Assistive Devices Assistive Device None,Straight Cane Gait Deviations General Gait Pattern Decreased Stride Length, Decreased Feet Clearance PT-OP-H Neuro Start: 04/14/24 08:04 Freq: Status: Active Protocol: Document 04/14/24 09:01 [facility] (Rec: 04/14/24 16:41 [facility] [id number]) Sensation Evaluation Gross Sensation Gross Sensation Left LE Impaired,Right LE Impaired Sensation Description Paresthesia PT-OP-J Posture/Palpation/Skin Start: 04/14/24 08:04 Freq: Status: Active Protocol: Document 04/14/24 09:01 [facility] (Rec: 04/14/24 16:41 [facility] [id number]) Palpation Assessment Location christie LE's Palpation Findings Edema Palpation Details redness, no increased warmth Skin Assessment Edema Assessment christie LE's Edema Type Pitting Edema Degree 4+ Edema Appearance Discolored,Shiny,Taut,Weeping Subjective Edema Description Pain,Tightness Comments reports scratched his left leg a couple days ago and has been weeping fluid; asked Dr. Madsen to come take a look at his leg. Dr. Madsen advised him on wound care and advised him to schedule with wound care clinic Other Assessments Skin Assessment Comments dry, flaky skin anterior shins , hyperkeratosis, 2 cm by 3cm open wound anterior left godinez weeping yellowish thin fluid, reddish discoloration lower legs and feet without excess warmth. Fibrosis christie lower legs. PT-OP-K Range of Motion Start: 04/14/24 08:04 Freq: Status: Active Protocol: Document 04/14/24 09:01 [facility] (Rec: 04/14/24 16:41 [facility] [id number]) Hip Goniometric Range of Motion Hip christie Hip ROM WFL No Comments mild decrease all motions Hip ROM Limitations Hip ROM Limitations Swelling Knee Goniometric Range of Motion Knee christie Knee ROM WFL No Knee ROM Limitations Knee ROM Limitations Swelling Ankle and Foot Goniometric Range of Motion Ankle and Foot christie Ankle/Foot ROM WFL No Dorsiflexion with Knee Flexed 5 Dorsiflexion with Knee Extended 0 Plantarflexion 15 Inversion 20 Ankle and Foot ROM Limitations ROM Limitations Soft Tissue Tightness,Swelling PT-OP-N Lymphedema Start: 04/14/24 08:04 Freq: Status: Active Protocol: Document 04/27/24 14:29 [facility] (Rec: 04/27/24 15:04 [facility] [id number]) Lymphedema Measurements Lower Extremity Circumference Measurements right MT Heads 27.8 cm Mid-foot 30 cm Medial Malleolus 37.2 cm 10 cm From Medial Malleolus 33.3 cm 20 cm From Medial Malleolus 45.2 cm 30 cm From Medial Malleolus 50.7 cm 40 cm From Medial Malleolus 44 cm 50 cm From Medial Malleolus 52 cm 60 cm From Medial Malleolus 62.7 cm Knee Joint 49.3 cm left MT Heads 28.3 cm Mid-foot 29.7 cm Medial Malleolus 36.4 cm 10 cm From Medial Malleolus 32.6 cm 20 cm From Medial Malleolus 44.8 cm 30 cm From Medial Malleolus 51.9 cm 40 cm From Medial Malleolus 46.3 cm 50 cm From Medial Malleolus 53.2 cm 60 cm From Medial Malleolus 63.8 cm Knee Joint 48.5 cm PT-OP-Q Treatments Start: 04/14/24 08:04 Freq: Status: Active Protocol: Document 04/27/24 14:29 [facility] (Rec: 04/27/24 15:04 [facility] [id number]) Lymphedema Treatment Manual Lymphatic Drainage Location christie LE's Duration 45 Comments sequential pneumatic pump at 40 mm Hg on side opposite to one being worked on. Lymphedema Wrapping Body Location christie LE's MTP's to upper thighs Materials Tricofix size G, Artiflex (24) , Komprex kidneys, Comprilan ( 6,8, 10, 10, 12), Patient compression shorts proximal compression over bandages to hold bandages up Sequential Lymphedema Exercises Location reviewed Compression Garment Assessment Compression Garment Assessment Details good fit of velcro compression wraps for feet, lower leg wraps fit well circumferentially but are too short. Patient obtained compression shorts to wear over compression bandaging to keep up and to facilitate proximal lymphatic drainage. Patient Education Lymphedema Pathology reviewed Lymphedema Prevention reviewed Lymphedema Precautions reviewed Compression Garments reviewed Self Manual Lymphatic Drainage reviewed Sequential Lymphedema Exercises reviewed Other Other bandaid applied to right anterior godinez over leaking blister, patient has wound care supplies at home. PT-OP-T Assessment and Plan Start: 04/14/24 08:04 Freq: Status: Active Protocol: Document 04/27/24 14:29 [facility] (Rec: 04/27/24 15:04 [facility] [id number]) Physical Therapy Assessment Goals Three Impairment limited walking due to lymphedema, frequently uses cane, unable to work Short Term Goal (STG) Patient will be able to walk for 30 minutes without device without difficulty STG Duration 05/17/24 Logistics Planning Engineer Goal (LTG) Patient will be able to stand and walk sufficient to be able to return to work LTG Duration 07/15/24 Two Impairment lymphedema life impact scale 49% Short Term Goal (STG) decrease lymphedema life impact scale to no greater than 35% STG Duration 05/17/24 Logistics Planning Engineer Goal (LTG) decrease lymphedema life impact scale to no greater than 15% as measure of reduced lymphedema, improved function and quality of life. LTG Duration 07/15/24 One Impairment lymphedema christie LE's Short Term Goal (STG) Patient will be instructed in all aspects of lymphedema self -care to include skin care, elevation, self-massage, self- bandaging/compression options, and lymphedema exercises. STG Duration 05/17/24 Logistics Planning Engineer Goal (LTG) Decrease patient?s lymphedema to a stable level (no increase or decrease greater than 1 cm over the course of 1 week), patient to be independent with all aspects of self-care for lymphedema, and will obtain appropriate compression garment for lymphedema management in the home. LTG Duration 07/15/24 Assessment Summary Assessment Patient unable to bandage himself at this time. Did order velcro compression wraps for his feet, received and wore but developed blisters on shins due to leaving foot wraps on but not wearing wraps on lower legs. Hasn't worn any compression today. Hopeful to start back to wound care soon. Reviewed instruction to wear compression 23 hrs per day to achieve reduction prior to having appointment at [facility]. Reviewed self MLD, encouraged increased exercise while wearing compression. Currently patient has been unable to bandage so when removes bandages will wear compression wraps; reviewed need for more compression distally, less as moves proximally. Physical Therapy Plan Frequency and Duration Frequency of Treatment 20 visits Duration of treatment (weeks) 12 Plan of Care Start Date 04/14/24 Plan of Care End Date 07/15/24 Therapeutic Interventions Therapeutic Interventions Home Exercise Program, Lymphedema Management,Manual Therapy,Patient/Caregiver Education,Self-Care/Home Management,Soft Tissue Mobilization,Therapeutic Activities,Therapeutic Exercises Modalities Vasopneumatic Devices Next Visit Focus/Plan Next Note Type Treatment Note Next Visit Plan Continue CDT, send information to [facility] for patient to get fit with compression garments and to [facility] to see if can get approved for sequential pneumatic pump
--- NOTE | 2024-04-27 16:40 | PT.OTN ---
Current Diagnoses Lymphedema, not elsewhere classified (04/27/24) Soft tissue disorder, unspecified (04/27/24) Difficulty in walking, not elsewhere classified (04/27/24) Physical Therapy Treatment Note PT-OP-A Visit Information Start: 04/14/24 08:04 Freq: Status: Active Protocol: Document 04/27/24 14:29 [facility] (Rec: 04/27/24 15:04 [facility] [id number]) Out-Patient Physical Therapy Visit Information Visit Information Visit Type Treatment Note Visit Start Time 14:29 Visit Stop Time 16:00 Visit Number 4 PT-OP-B Current Condition Start: 04/14/24 08:04 Freq: Status: Active Protocol: Document 04/27/24 14:29 [facility] (Rec: 04/27/24 15:04 [facility] [id number]) Current Condition History of Current Condition Onset Date December 2023 Current Complaints christie LE swelling History of Current Condition Acute onset swelling christie LE's an scrotum. , has seen mold finisher (negative for any cardiac involvement), vascular specialist (tests negative, veins good, flow good), CT scans negative christie groin lymph nodes enlarged, have decreased in size some per cancer doc. Another scan in 6 months. Sees sales enablement lead 05/02/24 due to low calcium levels. Did have scrotal edema; wore jock strap; scrotal swelling better . Feet still very swollen, legs red, hips still swollen, states now has difficulty fitting in seats. . Uses a cane at times for walking. Has compression stockings (knee high) and Juzo wraps (lower legs only). Cant wear shoes. 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 Trying to wear compression, trying to increase his walking. Prior Treatments and Tests as above Future Testing and Treatments Planned sales enablement lead 05/02/24 Treatment Goals Patient/Caregiver Goals decrease lymphedema, be able to return to work. PT-OP-C Subjective Start: 04/14/24 08:04 Freq: Status: Active Protocol: Document 04/27/24 14:29 [facility] (Rec: 04/27/24 15:04 [facility] [id number]) OP-PT Subjective Patient Comments Patient Comments Took bandages off Thursday, got velcro foot wraps. Made an appointment with PT-OP-G Mobility & Gait Start: 04/14/24 08:04 Freq: Status: Active Protocol: Document 04/14/24 09:01 [facility] (Rec: 04/14/24 16:41 [facility] [id number]) OP Gait Assessment Gait Gait Assistance Required: Independent Assistive Devices Assistive Device None,Straight Cane Gait Deviations General Gait Pattern Decreased Stride Length, Decreased Feet Clearance PT-OP-H Neuro Start: 04/14/24 08:04 Freq: Status: Active Protocol: Document 04/14/24 09:01 [facility] (Rec: 04/14/24 16:41 [facility] [id number]) Sensation Evaluation Gross Sensation Gross Sensation Left LE Impaired,Right LE Impaired Sensation Description Paresthesia PT-OP-J Posture/Palpation/Skin Start: 04/14/24 08:04 Freq: Status: Active Protocol: Document 04/14/24 09:01 [facility] (Rec: 04/14/24 16:41 [facility] [id number]) Palpation Assessment Location christie LE's Palpation Findings Edema Palpation Details redness, no increased warmth Skin Assessment Edema Assessment christie LE's Edema Type Pitting Edema Degree 4+ Edema Appearance Discolored,Shiny,Taut,Weeping Subjective Edema Description Pain,Tightness Comments reports scratched his left leg a couple days ago and has been weeping fluid; asked Dr. Madsen to come take a look at his leg. Dr. Madsen advised him on wound care and advised him to schedule with wound care clinic Other Assessments Skin Assessment Comments dry, flaky skin anterior shins , hyperkeratosis, 2 cm by 3cm open wound anterior left godinez weeping yellowish thin fluid, reddish discoloration lower legs and feet without excess warmth. Fibrosis christie lower legs. PT-OP-K Range of Motion Start: 04/14/24 08:04 Freq: Status: Active Protocol: Document 04/14/24 09:01 [facility] (Rec: 04/14/24 16:41 [facility] [id number]) Hip Goniometric Range of Motion Hip christie Hip ROM WFL No Comments mild decrease all motions Hip ROM Limitations Hip ROM Limitations Swelling Knee Goniometric Range of Motion Knee christie Knee ROM WFL No Knee ROM Limitations Knee ROM Limitations Swelling Ankle and Foot Goniometric Range of Motion Ankle and Foot christie Ankle/Foot ROM WFL No Dorsiflexion with Knee Flexed 5 Dorsiflexion with Knee Extended 0 Plantarflexion 15 Inversion 20 Ankle and Foot ROM Limitations ROM Limitations Soft Tissue Tightness,Swelling PT-OP-N Lymphedema Start: 04/14/24 08:04 Freq: Status: Active Protocol: Document 04/27/24 14:29 [facility] (Rec: 04/27/24 15:04 [facility] [id number]) Lymphedema Measurements Lower Extremity Circumference Measurements right MT Heads 27.8 cm Mid-foot 30 cm Medial Malleolus 37.2 cm 10 cm From Medial Malleolus 33.3 cm 20 cm From Medial Malleolus 45.2 cm 30 cm From Medial Malleolus 50.7 cm 40 cm From Medial Malleolus 44 cm 50 cm From Medial Malleolus 52 cm 60 cm From Medial Malleolus 62.7 cm Knee Joint 49.3 cm left MT Heads 28.3 cm Mid-foot 29.7 cm Medial Malleolus 36.4 cm 10 cm From Medial Malleolus 32.6 cm 20 cm From Medial Malleolus 44.8 cm 30 cm From Medial Malleolus 51.9 cm 40 cm From Medial Malleolus 46.3 cm 50 cm From Medial Malleolus 53.2 cm 60 cm From Medial Malleolus 63.8 cm Knee Joint 48.5 cm PT-OP-Q Treatments Start: 04/14/24 08:04 Freq: Status: Active Protocol: Document 04/27/24 14:29 [facility] (Rec: 04/27/24 15:04 [facility] [id number]) Lymphedema Treatment Manual Lymphatic Drainage Location christie LE's Duration 45 Comments sequential pneumatic pump at 40 mm Hg on side opposite to one being worked on. Lymphedema Wrapping Body Location christie LE's MTP's to upper thighs Materials Tricofix size G, Artiflex (24) , Komprex kidneys, Comprilan ( 6,8, 10, 10, 12), Patient compression shorts proximal compression over bandages to hold bandages up Sequential Lymphedema Exercises Location reviewed Compression Garment Assessment Compression Garment Assessment Details good fit of velcro compression wraps for feet, lower leg wraps fit well circumferentially but are too short. Patient obtained compression shorts to wear over compression bandaging to keep up and to facilitate proximal lymphatic drainage. Patient Education Lymphedema Pathology reviewed Lymphedema Prevention reviewed Lymphedema Precautions reviewed Compression Garments reviewed Self Manual Lymphatic Drainage reviewed Sequential Lymphedema Exercises reviewed Other Other bandaid applied to right anterior godinez over leaking blister, patient has wound care supplies at home. PT-OP-T Assessment and Plan Start: 04/14/24 08:04 Freq: Status: Active Protocol: Document 04/27/24 14:29 [facility] (Rec: 04/27/24 15:04 [facility] [id number]) Physical Therapy Assessment Goals Three Impairment limited walking due to lymphedema, frequently uses cane, unable to work Short Term Goal (STG) Patient will be able to walk for 30 minutes without device without difficulty STG Duration 05/17/24 Assisted Goal (LTG) Patient will be able to stand and walk sufficient to be able to return to work LTG Duration 07/15/24 Two Impairment lymphedema life impact scale 49% Short Term Goal (STG) decrease lymphedema life impact scale to no greater than 35% STG Duration 05/17/24 Attendant Self Service Store Goal (LTG) decrease lymphedema life impact scale to no greater than 15% as measure of reduced lymphedema, improved function and quality of life. LTG Duration 07/15/24 One Impairment lymphedema christie LE's Short Term Goal (STG) Patient will be instructed in all aspects of lymphedema self -care to include skin care, elevation, self-massage, self- bandaging/compression options, and lymphedema exercises. STG Duration 05/17/24 Attendant Self Service Store Goal (LTG) Decrease patient?s lymphedema to a stable level (no increase or decrease greater than 1 cm over the course of 1 week), patient to be independent with all aspects of self-care for lymphedema, and will obtain appropriate compression garment for lymphedema management in the home. LTG Duration 07/15/24 Assessment Summary Assessment Patient unable to bandage himself at this time. Did order velcro compression wraps for his feet, received and wore but developed blisters on shins due to leaving foot wraps on but not wearing wraps on lower legs. Hasn't worn any compression today. Hopeful to start back to wound care soon. Reviewed instruction to wear compression 23 hrs per day to achieve reduction prior to having appointment at [facility]. Reviewed self MLD, encouraged increased exercise while wearing compression. Currently patient has been unable to bandage so when removes bandages will wear compression wraps; reviewed need for more compression distally, less as moves proximally. Physical Therapy Plan Frequency and Duration Frequency of Treatment 20 visits Duration of treatment (weeks) 12 Plan of Care Start Date 04/14/24 Plan of Care End Date 07/15/24 Therapeutic Interventions Therapeutic Interventions Home Exercise Program, Lymphedema Management,Manual Therapy,Patient/Caregiver Education,Self-Care/Home Management,Soft Tissue Mobilization,Therapeutic Activities,Therapeutic Exercises Modalities Vasopneumatic Devices Next Visit Focus/Plan Next Note Type Treatment Note Next Visit Plan Continue CDT, send information to [facility] for patient to get fit with compression garments and to [facility] to see if can get approved for sequential pneumatic pump
--- NOTE | 2024-05-01 16:12 | PT.OTN ---
Current Diagnoses Lymphedema, not elsewhere classified (04/27/24) Soft tissue disorder, unspecified (04/27/24) Difficulty in walking, not elsewhere classified (04/27/24) Physical Therapy Treatment Note PT-OP-A Visit Information Start: 04/14/24 08:04 Freq: Status: Active Protocol: Document 04/27/24 14:29 [facility] (Rec: 04/27/24 15:04 [facility] [id number]) Out-Patient Physical Therapy Visit Information Visit Information Visit Type Treatment Note Visit Start Time 14:29 Visit Stop Time 16:00 Visit Number 4 PT-OP-B Current Condition Start: 04/14/24 08:04 Freq: Status: Active Protocol: Document 04/27/24 14:29 [facility] (Rec: 04/27/24 15:04 [facility] [id number]) Current Condition History of Current Condition Onset Date December 2023 Current Complaints christie LE swelling History of Current Condition Acute onset swelling christie LE's an scrotum. , has seen adult nurse practitioner (negative for any cardiac involvement), vascular specialist (tests negative, veins good, flow good), CT scans negative christie groin lymph nodes enlarged, have decreased in size some per cancer doc. Another scan in 6 months. Sees trim setter helper 05/02/24 due to low calcium levels. Did have scrotal edema; wore jock strap; scrotal swelling better . Feet still very swollen, legs red, hips still swollen, states now has difficulty fitting in seats. . Uses a cane at times for walking. Has compression stockings (knee high) and Juzo wraps (lower legs only). Cant wear shoes. 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 Trying to wear compression, trying to increase his walking. Prior Treatments and Tests as above Future Testing and Treatments Planned trim setter helper 05/02/24 Treatment Goals Patient/Caregiver Goals decrease lymphedema, be able to return to work. PT-OP-C Subjective Start: 04/14/24 08:04 Freq: Status: Active Protocol: Document 04/27/24 14:29 [facility] (Rec: 04/27/24 15:04 [facility] [id number]) OP-PT Subjective Patient Comments Patient Comments Took bandages off Thursday, got velcro foot wraps. Made an appointment with [facility] for fitting but didn't want to wait. Put on velcro foot wraps but not lower leg wraps, had increased fluid lower legs with blistering and open area. Was unable to self bandage. PT-OP-G Mobility & Gait Start: 04/14/24 08:04 Freq: Status: Active Protocol: Document 04/14/24 09:01 [facility] (Rec: 04/14/24 16:41 [facility] [id number]) OP Gait Assessment Gait Gait Assistance Required: Independent Assistive Devices Assistive Device None,Straight Cane Gait Deviations General Gait Pattern Decreased Stride Length, Decreased Feet Clearance PT-OP-H Neuro Start: 04/14/24 08:04 Freq: Status: Active Protocol: Document 04/14/24 09:01 [facility] (Rec: 04/14/24 16:41 [facility] [id number]) Sensation Evaluation Gross Sensation Gross Sensation Left LE Impaired,Right LE Impaired Sensation Description Paresthesia PT-OP-J Posture/Palpation/Skin Start: 04/14/24 08:04 Freq: Status: Active Protocol: Document 04/14/24 09:01 [facility] (Rec: 04/14/24 16:41 [facility] [id number]) Palpation Assessment Location christie LE's Palpation Findings Edema Palpation Details redness, no increased warmth Skin Assessment Edema Assessment christie LE's Edema Type Pitting Edema Degree 4+ Edema Appearance Discolored,Shiny,Taut,Weeping Subjective Edema Description Pain,Tightness Comments reports scratched his left leg a couple days ago and has been weeping fluid; asked Dr. Madsen to come take a look at his leg. Dr. Madsen advised him on wound care and advised him to schedule with wound care clinic Other Assessments Skin Assessment Comments dry, flaky skin anterior shins , hyperkeratosis, 2 cm by 3cm open wound anterior left godinez weeping yellowish thin fluid, reddish discoloration lower legs and feet without excess warmth. Fibrosis christie lower legs. PT-OP-K Range of Motion Start: 04/14/24 08:04 Freq: Status: Active Protocol: Document 04/14/24 09:01 [facility] (Rec: 04/14/24 16:41 [facility] [id number]) Hip Goniometric Range of Motion Hip christie Hip ROM WFL No Comments mild decrease all motions Hip ROM Limitations Hip ROM Limitations Swelling Knee Goniometric Range of Motion Knee christie Knee ROM WFL No Knee ROM Limitations Knee ROM Limitations Swelling Ankle and Foot Goniometric Range of Motion Ankle and Foot christie Ankle/Foot ROM WFL No Dorsiflexion with Knee Flexed 5 Dorsiflexion with Knee Extended 0 Plantarflexion 15 Inversion 20 Ankle and Foot ROM Limitations ROM Limitations Soft Tissue Tightness,Swelling PT-OP-N Lymphedema Start: 04/14/24 08:04 Freq: Status: Active Protocol: Document 04/27/24 14:29 [facility] (Rec: 04/27/24 15:04 [facility] [id number]) Lymphedema Measurements Lower Extremity Circumference Measurements right MT Heads 27.8 cm Mid-foot 30 cm Medial Malleolus 37.2 cm 10 cm From Medial Malleolus 33.3 cm 20 cm From Medial Malleolus 45.2 cm 30 cm From Medial Malleolus 50.7 cm 40 cm From Medial Malleolus 44 cm 50 cm From Medial Malleolus 52 cm 60 cm From Medial Malleolus 62.7 cm Knee Joint 49.3 cm left MT Heads 28.3 cm Mid-foot 29.7 cm Medial Malleolus 36.4 cm 10 cm From Medial Malleolus 32.6 cm 20 cm From Medial Malleolus 44.8 cm 30 cm From Medial Malleolus 51.9 cm 40 cm From Medial Malleolus 46.3 cm 50 cm From Medial Malleolus 53.2 cm 60 cm From Medial Malleolus 63.8 cm Knee Joint 48.5 cm PT-OP-Q Treatments Start: 04/14/24 08:04 Freq: Status: Active Protocol: Document 04/27/24 14:29 [facility] (Rec: 04/27/24 15:04 [facility] [id number]) Lymphedema Treatment Manual Lymphatic Drainage Location christie LE's Duration 45 Comments sequential pneumatic pump at 40 mm Hg on side opposite to one being worked on. Lymphedema Wrapping Body Location christie LE's MTP's to upper thighs Materials Tricofix size G, Artiflex (24) , Komprex kidneys, Comprilan ( 6,8, 10, 10, 12), Patient compression shorts proximal compression over bandages to hold bandages up Sequential Lymphedema Exercises Location reviewed Compression Garment Assessment Compression Garment Assessment Details good fit of velcro compression wraps for feet, lower leg wraps fit well circumferentially but are too short. Patient obtained compression shorts to wear over compression bandaging to keep up and to facilitate proximal lymphatic drainage. Patient Education Lymphedema Pathology reviewed Lymphedema Prevention reviewed Lymphedema Precautions reviewed Compression Garments reviewed Self Manual Lymphatic Drainage reviewed Sequential Lymphedema Exercises reviewed Other Other bandaid applied to right anterior godinez over leaking blister, patient has wound care supplies at home. PT-OP-T Assessment and Plan Start: 04/14/24 08:04 Freq: Status: Active Protocol: Document 04/27/24 14:29 [facility] (Rec: 04/27/24 15:04 [facility] [id number]) Physical Therapy Assessment Goals Three Impairment limited walking due to lymphedema, frequently uses cane, unable to work Short Term Goal (STG) Patient will be able to walk for 30 minutes without device without difficulty STG Duration 05/17/24 [facility] [facility]er Goal (LTG) Patient will be able to stand and walk sufficient to be able to return to work LTG Duration 07/15/24 Two Impairment lymphedema life impact scale 49% Short Term Goal (STG) decrease lymphedema life impact scale to no greater than 35% STG Duration 05/17/24 [place] Faller Goal (LTG) decrease lymphedema life impact scale to no greater than 15% as measure of reduced lymphedema, improved function and quality of life. LTG Duration 07/15/24 One Impairment lymphedema christie LE's Short Term Goal (STG) Patient will be instructed in all aspects of lymphedema self -care to include skin care, elevation, self-massage, self- bandaging/compression options, and lymphedema exercises. STG Duration 05/17/24 [place] Faller Goal (LTG) Decrease patient?s lymphedema to a stable level (no increase or decrease greater than 1 cm over the course of 1 week), patient to be independent with all aspects of self-care for lymphedema, and will obtain appropriate compression garment for lymphedema management in the home. LTG Duration 07/15/24 Assessment Summary Assessment Patient unable to bandage himself at this time. Did order velcro compression wraps for his feet, received and wore but developed blisters on shins due to leaving foot wraps on but not wearing wraps on lower legs. Hasn't worn any compression today. Hopeful to start back to wound care soon. Reviewed instruction to wear compression 23 hrs per day to achieve reduction prior to having appointment at [facility]. Reviewed self MLD, encouraged increased exercise while wearing compression. Currently patient has been unable to bandage so when removes bandages will wear compression wraps; reviewed need for more compression distally, less as moves proximally. Physical Therapy Plan Frequency and Duration Frequency of Treatment 20 visits Duration of treatment (weeks) 12 Plan of Care Start Date 04/14/24 Plan of Care End Date 07/15/24 Therapeutic Interventions Therapeutic Interventions Home Exercise Program, Lymphedema Management,Manual Therapy,Patient/Caregiver Education,Self-Care/Home Management,Soft Tissue Mobilization,Therapeutic Activities,Therapeutic Exercises Modalities Vasopneumatic Devices Next Visit Focus/Plan Next Note Type Treatment Note Next Visit Plan Continue CDT, send information to [facility] for patient to get fit with compression garments and to [facility] to see if can get approved for sequential pneumatic pump
--- NOTE | 2024-05-02 16:20 | PT.OTN ---
Current Diagnoses Lymphedema, not elsewhere classified (05/02/24) Soft tissue disorder, unspecified (05/02/24) Difficulty in walking, not elsewhere classified (05/02/24) Physical Therapy Treatment Note PT-OP-A Visit Information Start: 04/14/24 08:04 Freq: Status: Active Protocol: Document 05/02/24 14:32 [facility] (Rec: 05/02/24 15:21 [facility] [id number]) Out-Patient Physical Therapy Visit Information Visit Information Visit Type Treatment Note Visit Start Time 14:29 Visit Stop Time 15:30 Visit Number 5 Evaluation Information Evaluation Date 04/14/24 PT-OP-B Current Condition Start: 04/14/24 08:04 Freq: Status: Active Protocol: Document 05/02/24 14:32 [facility] (Rec: 05/02/24 15:21 [facility] [id number]) Current Condition History of Current Condition Onset Date December 2023 Current Complaints christie LE swelling History of Current Condition Acute onset swelling christie LE's an scrotum. , has seen passenger elevator operator (negative for any cardiac involvement), vascular specialist (tests negative, veins good, flow good), CT scans negative christie groin lymph nodes enlarged, have decreased in size some per cancer doc. Another scan in 6 months. Sees desktop manager 05/02/24 due to low calcium levels. Did have scrotal edema; wore jock strap; scrotal swelling better . Feet still very swollen, legs red, hips still swollen, states now has difficulty fitting in seats. . Uses a cane at times for walking. Has compression stockings (knee high) and Juzo wraps (lower legs only). Cant wear shoes. 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 Trying to wear compression, trying to increase his walking. Prior Treatments and Tests as above Future Testing and Treatments Planned desktop manager 05/02/24 Treatment Goals Patient/Caregiver Goals decrease lymphedema, be able to return to work. PT-OP-C Subjective Start: 04/14/24 08:04 Freq: Status: Active Protocol: Document 05/02/24 14:32 [facility] (Rec: 05/02/24 15:21 [facility] [id number]) OP-PT Subjective Patient Comments Patient Comments Last night wore compression wraps on feet and lower legs, today wearing compression knee highs, went to desktop manager today, pt states she doesn't thyroid issues caused lymphedema. States he had cellulitis right LE after work related injury approx 10 years ago. Forgot to tell PT. PT-OP-G Mobility & Gait Start: 04/14/24 08:04 Freq: Status: Active Protocol: Document 04/14/24 09:01 [facility] (Rec: 04/14/24 16:41 [facility] [id number]) OP Gait Assessment Gait Gait Assistance Required: Independent Assistive Devices Assistive Device None,Straight Cane Gait Deviations General Gait Pattern Decreased Stride Length, Decreased Feet Clearance PT-OP-H Neuro Start: 04/14/24 08:04 Freq: Status: Active Protocol: Document 04/14/24 09:01 [facility] (Rec: 04/14/24 16:41 [facility] [id number]) Sensation Evaluation Gross Sensation Gross Sensation Left LE Impaired,Right LE Impaired Sensation Description Paresthesia PT-OP-J Posture/Palpation/Skin Start: 04/14/24 08:04 Freq: Status: Active Protocol: Document 04/14/24 09:01 [facility] (Rec: 04/14/24 16:41 [facility] [id number]) Palpation Assessment Location christie LE's Palpation Findings Edema Palpation Details redness, no increased warmth Skin Assessment Edema Assessment christie LE's Edema Type Pitting Edema Degree 4+ Edema Appearance Discolored,Shiny,Taut,Weeping Subjective Edema Description Pain,Tightness Comments reports scratched his left leg a couple days ago and has been weeping fluid; asked Dr. Madsen to come take a look at his leg. Dr. aMdsen advised him on wound care and advised him to schedule with wound care clinic Other Assessments Skin Assessment Comments dry, flaky skin anterior shins , hyperkeratosis, 2 cm by 3cm open wound anterior left godinez weeping yellowish thin fluid, reddish discoloration lower legs and feet without excess warmth. Fibrosis christie lower legs. PT-OP-K Range of Motion Start: 04/14/24 08:04 Freq: Status: Active Protocol: Document 04/14/24 09:01 [facility] (Rec: 04/14/24 16:41 [facility] [id number]) Hip Goniometric Range of Motion Hip christie Hip ROM WFL No Comments mild decrease all motions Hip ROM Limitations Hip ROM Limitations Swelling Knee Goniometric Range of Motion Knee christie Knee ROM WFL No Knee ROM Limitations Knee ROM Limitations Swelling Ankle and Foot Goniometric Range of Motion Ankle and Foot christie Ankle/Foot ROM WFL No Dorsiflexion with Knee Flexed 5 Dorsiflexion with Knee Extended 0 Plantarflexion 15 Inversion 20 Ankle and Foot ROM Limitations ROM Limitations Soft Tissue Tightness,Swelling PT-OP-N Lymphedema Start: 04/14/24 08:04 Freq: Status: Active Protocol: Document 05/02/24 14:32 [facility] (Rec: 05/02/24 15:21 [facility] [id number]) Lymphedema Measurements Lower Extremity Circumference Measurements right MT Heads 28.3 cm Mid-foot 29 cm Medial Malleolus 33.7 cm 10 cm From Medial Malleolus 33.8 cm 20 cm From Medial Malleolus 44.7 cm 30 cm From Medial Malleolus 50.3 cm 40 cm From Medial Malleolus 43.7 cm 50 cm From Medial Malleolus 51.2 cm 60 cm From Medial Malleolus 64 cm Knee Joint 50.3 cm left MT Heads 28.3 cm Mid-foot 29.5 cm Medial Malleolus 34.2 cm 10 cm From Medial Malleolus 31.9 cm 20 cm From Medial Malleolus 43.8 cm 30 cm From Medial Malleolus 49.6 cm 40 cm From Medial Malleolus 45.8 cm 50 cm From Medial Malleolus 53.5 cm 60 cm From Medial Malleolus 66.8 cm Knee Joint 49.1 cm PT-OP-Q Treatments Start: 04/14/24 08:04 Freq: Status: Active Protocol: Document 05/02/24 14:32 [facility] (Rec: 05/02/24 15:21 [facility] [id number]) Cardio Equipment Recumbent Stepper (Sci-Fit) Duration (Minutes) 10 Resistance 1 Seat Position 17 Lymphedema Treatment Manual Lymphatic Drainage Location christie LE's Duration 45 Comments sequential pneumatic pump at 40 mm Hg on side opposite to one being worked on. Lymphedema Wrapping Body Location christie LE's MTP's to upper thighs Materials Tricofix size G, Artiflex (24) , Komprex kidneys, Comprilan ( 6,8, 10, 10, 12), Patient compression shorts proximal compression over bandages to hold bandages up Compression Garment Assessment Compression Garment Assessment Details Good fit knee high compression but pushed fluid to knees with noted increase in circumferential measurements at knees today PT-OP-T Assessment and Plan Start: 04/14/24 08:04 Freq: Status: Active Protocol: Document 05/02/24 14:32 [facility] (Rec: 05/02/24 15:21 [facility] [id number]) Physical Therapy Assessment Goals Three Impairment limited walking due to lymphedema, frequently uses cane, unable to work Short Term Goal (STG) Patient will be able to walk for 30 minutes without device without difficulty STG Duration 05/17/24 Detention Goal (LTG) Patient will be able to stand and walk sufficient to be able to return to work LTG Duration 07/15/24 Two Impairment lymphedema life impact scale 49% Short Term Goal (STG) decrease lymphedema life impact scale to no greater than 35% STG Duration 05/17/24 Detention Goal (LTG) decrease lymphedema life impact scale to no greater than 15% as measure of reduced lymphedema, improved function and quality of life. LTG Duration 07/15/24 One Impairment lymphedema christie LE's Short Term Goal (STG) Patient will be instructed in all aspects of lymphedema self -care to include skin care, elevation, self-massage, self- bandaging/compression options, and lymphedema exercises. STG Duration 05/17/24 Detention Goal (LTG) Decrease patient?s lymphedema to a stable level (no increase or decrease greater than 1 cm over the course of 1 week), patient to be independent with all aspects of self-care for lymphedema, and will obtain appropriate compression garment for lymphedema management in the home. LTG Duration 07/15/24 Assessment Summary Assessment Most measurements decreased today despite patient spending majority of time sitting in his vehicle and in doctor's office. Knee measurements increased due to having no compression over knees right now. Will need further discussion best option for compression; tights or thigh high stockings with compression shorts. Physical Therapy Plan Frequency and Duration Frequency of Treatment 20 visits Duration of treatment (weeks) 12 Plan of Care Start Date 04/14/24 Plan of Care End Date 07/15/24 Therapeutic Interventions Therapeutic Interventions Home Exercise Program, Lymphedema Management,Manual Therapy,Patient/Caregiver Education,Self-Care/Home Management,Soft Tissue Mobilization,Therapeutic Activities,Therapeutic Exercises Modalities Vasopneumatic Devices Next Visit Focus/Plan Next Note Type Treatment Note Next Visit Plan Continue CDT, facilitate patient obtaining appropriate compression garments and sequential pneumatic pump
--- NOTE | 2024-05-02 16:21 | PT.OTN ---
Current Diagnoses Lymphedema, not elsewhere classified (05/02/24) Soft tissue disorder, unspecified (05/02/24) Difficulty in walking, not elsewhere classified (05/02/24) Physical Therapy Treatment Note PT-OP-A Visit Information Start: 04/14/24 08:04 Freq: Status: Active Protocol: Document 05/02/24 14:32 [facility] (Rec: 05/02/24 15:21 [facility] [id number]) Out-Patient Physical Therapy Visit Information Visit Information Visit Type Treatment Note Visit Start Time 14:29 Visit Stop Time 15:30 Visit Number 5 Evaluation Information Evaluation Date 04/14/24 PT-OP-B Current Condition Start: 04/14/24 08:04 Freq: Status: Active Protocol: Document 05/02/24 14:32 [facility]AK (Rec: 05/02/24 15:21 [facility] [id number]) Current Condition History of Current Condition Onset Date December 2023 Current Complaints christie LE swelling History of Current Condition Acute onset swelling christie LE's an scrotum. , has seen executive administrator (negative for any cardiac involvement), vascular specialist (tests negative, veins good, flow good), CT scans negative christie groin lymph nodes enlarged, have decreased in size some per cancer doc. Another scan in 6 months. Sees account coordinator 05/02/24 due to low calcium levels. Did have scrotal edema; wore jock strap; scrotal swelling better . Feet still very swollen, legs red, hips still swollen, states now has difficulty fitting in seats. . Uses a cane at times for walking. Has compression stockings (knee high) and Juzo wraps (lower legs only). Cant wear shoes. 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 Trying to wear compression, trying to increase his walking. Prior Treatments and Tests as above Future Testing and Treatments Planned account coordinator 05/02/24 Treatment Goals Patient/Caregiver Goals decrease lymphedema, be able to return to work. PT-OP-C Subjective Start: 04/14/24 08:04 Freq: Status: Active Protocol: Document 05/02/24 14:32 [facility]AK (Rec: 05/02/24 15:21 [facility] [id number]) OP-PT Subjective Patient Comments Patient Comments Last night wore compression wraps on feet and lower legs, today wearing compression knee highs, went to account coordinator today, pt states she doesn't thyroid issues caused lymphedema. States he had cellulitis right LE after work related injury approx 10 years ago. Forgot to tell PT. PT-OP-G Mobility & Gait Start: 04/14/24 08:04 Freq: Status: Active Protocol: Document 04/14/24 09:01 [facility] (Rec: 04/14/24 16:41 [facility] [id number]) OP Gait Assessment Gait Gait Assistance Required: Independent Assistive Devices Assistive Device None,Straight Cane Gait Deviations General Gait Pattern Decreased Stride Length, Decreased Feet Clearance PT-OP-H Neuro Start: 04/14/24 08:04 Freq: Status: Active Protocol: Document 04/14/24 09:01 [facility] (Rec: 04/14/24 16:41 [facility] [id number]) Sensation Evaluation Gross Sensation Gross Sensation Left LE Impaired,Right LE Impaired Sensation Description Paresthesia PT-OP-J Posture/Palpation/Skin Start: 04/14/24 08:04 Freq: Status: Active Protocol: Document 04/14/24 09:01 [facility] (Rec: 04/14/24 16:41 [facility] [id number]) Palpation Assessment Location christie LE's Palpation Findings Edema Palpation Details redness, no increased warmth Skin Assessment Edema Assessment christie LE's Edema Type Pitting Edema Degree 4+ Edema Appearance Discolored,Shiny,Taut,Weeping Subjective Edema Description Pain,Tightness Comments reports scratched his left leg a couple days ago and has been weeping fluid; asked Dr. Madsen to come take a look at his leg. Dr. Madsen advised him on wound care and advised him to schedule with wound care clinic Other Assessments Skin Assessment Comments dry, flaky skin anterior shins , hyperkeratosis, 2 cm by 3cm open wound anterior left godinez weeping yellowish thin fluid, reddish discoloration lower legs and feet without excess warmth. Fibrosis christie lower legs. PT-OP-K Range of Motion Start: 04/14/24 08:04 Freq: Status: Active Protocol: Document 04/14/24 09:01 [facility] (Rec: 04/14/24 16:41 [facility] [id number]) Hip Goniometric Range of Motion Hip christie Hip ROM WFL No Comments mild decrease all motions Hip ROM Limitations Hip ROM Limitations Swelling Knee Goniometric Range of Motion Knee christie Knee ROM WFL No Knee ROM Limitations Knee ROM Limitations Swelling Ankle and Foot Goniometric Range of Motion Ankle and Foot christie Ankle/Foot ROM WFL No Dorsiflexion with Knee Flexed 5 Dorsiflexion with Knee Extended 0 Plantarflexion 15 Inversion 20 Ankle and Foot ROM Limitations ROM Limitations Soft Tissue Tightness,Swelling PT-OP-N Lymphedema Start: 04/14/24 08:04 Freq: Status: Active Protocol: Document 05/02/24 14:32 [facility] (Rec: 05/02/24 15:21 [facility] [id number]) Lymphedema Measurements Lower Extremity Circumference Measurements right MT Heads 28.3 cm Mid-foot 29 cm Medial Malleolus 33.7 cm 10 cm From Medial Malleolus 33.8 cm 20 cm From Medial Malleolus 44.7 cm 30 cm From Medial Malleolus 50.3 cm 40 cm From Medial Malleolus 43.7 cm 50 cm From Medial Malleolus 51.2 cm 60 cm From Medial Malleolus 64 cm Knee Joint 50.3 cm left MT Heads 28.3 cm Mid-foot 29.5 cm Medial Malleolus 34.2 cm 10 cm From Medial Malleolus 31.9 cm 20 cm From Medial Malleolus 43.8 cm 30 cm From Medial Malleolus 49.6 cm 40 cm From Medial Malleolus 45.8 cm 50 cm From Medial Malleolus 53.5 cm 60 cm From Medial Malleolus 66.8 cm Knee Joint 49.1 cm PT-OP-Q Treatments Start: 04/14/24 08:04 Freq: Status: Active Protocol: Document 05/02/24 14:32 [facility] (Rec: 05/02/24 15:21 [facility] [id number]) Cardio Equipment Recumbent Stepper (Sci-Fit) Duration (Minutes) 10 Resistance 1 Seat Position 17 Lymphedema Treatment Manual Lymphatic Drainage Location christie LE's Duration 45 Comments sequential pneumatic pump at 40 mm Hg on side opposite to one being worked on. Lymphedema Wrapping Body Location christie LE's MTP's to upper thighs Materials Tricofix size G, Artiflex (24) , Komprex kidneys, Comprilan ( 6,8, 10, 10, 12), Patient compression shorts proximal compression over bandages to hold bandages up Compression Garment Assessment Compression Garment Assessment Details Good fit knee high compression but pushed fluid to knees with noted increase in circumferential measurements at knees today PT-OP-T Assessment and Plan Start: 04/14/24 08:04 Freq: Status: Active Protocol: Document 05/02/24 14:32 [facility] (Rec: 05/02/24 15:21 [facility] [id number]) Physical Therapy Assessment Goals Three Impairment limited walking due to lymphedema, frequently uses cane, unable to work Short Term Goal (STG) Patient will be able to walk for 30 minutes without device without difficulty STG Duration 05/17/24 Nursing Home Goal (LTG) Patient will be able to stand and walk sufficient to be able to return to work LTG Duration 07/15/24 Two Impairment lymphedema life impact scale 49% Short Term Goal (STG) decrease lymphedema life impact scale to no greater than 35% STG Duration 05/17/24 Nursing Home Goal (LTG) decrease lymphedema life impact scale to no greater than 15% as measure of reduced lymphedema, improved function and quality of life. LTG Duration 07/15/24 One Impairment lymphedema christie LE's Short Term Goal (STG) Patient will be instructed in all aspects of lymphedema self -care to include skin care, elevation, self-massage, self- bandaging/compression options, and lymphedema exercises. STG Duration 05/17/24 Nursing Home Goal (LTG) Decrease patient?s lymphedema to a stable level (no increase or decrease greater than 1 cm over the course of 1 week), patient to be independent with all aspects of self-care for lymphedema, and will obtain appropriate compression garment for lymphedema management in the home. LTG Duration 07/15/24 Assessment Summary Assessment Most measurements decreased today despite patient spending majority of time sitting in his vehicle and in doctor's office. Knee measurements increased due to having no compression over knees right now. Will need further discussion best option for compression; tights or thigh high stockings with compression shorts. Physical Therapy Plan Frequency and Duration Frequency of Treatment 20 visits Duration of treatment (weeks) 12 Plan of Care Start Date 04/14/24 Plan of Care End Date 07/15/24 Therapeutic Interventions Therapeutic Interventions Home Exercise Program, Lymphedema Management,Manual Therapy,Patient/Caregiver Education,Self-Care/Home Management,Soft Tissue Mobilization,Therapeutic Activities,Therapeutic Exercises Modalities Vasopneumatic Devices Next Visit Focus/Plan Next Note Type Treatment Note Next Visit Plan Continue CDT, facilitate patient obtaining appropriate compression garments and sequential pneumatic pump
--- NOTE | 2024-05-04 16:24 | PT.OTN ---
Current Diagnoses Lymphedema, not elsewhere classified (05/04/24) Soft tissue disorder, unspecified (05/04/24) Difficulty in walking, not elsewhere classified (05/04/24) Physical Therapy Treatment Note PT-OP-A Visit Information Start: 04/14/24 08:04 Freq: Status: Active Protocol: Document 05/04/24 14:33 [facility] (Rec: 05/04/24 15:08 [facility] [id number]) Out-Patient Physical Therapy Visit Information Visit Information Visit Type Treatment Note Visit Start Time 14:33 Visit Stop Time 16:00 Visit Number 6 Evaluation Information Evaluation Date 04/14/24 PT-OP-B Current Condition Start: 04/14/24 08:04 Freq: Status: Active Protocol: Document 05/04/24 14:33 [facility] (Rec: 05/04/24 15:08 [facility] [id number]) Current Condition History of Current Condition Onset Date December 2023 Current Complaints christie LE swelling History of Current Condition Acute onset swelling christie LE's an scrotum. , has seen health information coder (negative for any cardiac involvement), vascular specialist (tests negative, veins good, flow good), CT scans negative christie groin lymph nodes enlarged, have decreased in size some per cancer doc. Another scan in 6 months. Sees lap cutter 05/02/24 due to low calcium levels. Did have scrotal edema; wore jock strap; scrotal swelling better . Feet still very swollen, legs red, hips still swollen, states now has difficulty fitting in seats. . Uses a cane at times for walking. Has compression stockings (knee high) and Juzo wraps (lower legs only). Cant wear shoes. 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 Trying to wear compression, trying to increase his walking. Prior Treatments and Tests as above Future Testing and Treatments Planned lap cutter 05/02/24 PT-OP-C Subjective Start: 04/14/24 08:04 Freq: Status: Active Protocol: Document 05/04/24 14:33 [facility] (Rec: 05/04/24 15:08 [facility] [id number]) OP-PT Subjective Patient Comments Patient Comments Left bandaging on for 1 day, left toe wraps on until last night. Then wore compression wraps at home, wore knee high compression stockings to PT. Overall improving. Right godinez seems to be healing, no more drainage. PT-OP-G Mobility & Gait Start: 04/14/24 08:04 Freq: Status: Active Protocol: Document 04/14/24 09:01 [facility] (Rec: 04/14/24 16:41 [facility] [id number]) OP Gait Assessment Gait Gait Assistance Required: Independent Assistive Devices Assistive Device None,Straight Cane Gait Deviations General Gait Pattern Decreased Stride Length, Decreased Feet Clearance PT-OP-H Neuro Start: 04/14/24 08:04 Freq: Status: Active Protocol: Document 04/14/24 09:01 [facility] (Rec: 04/14/24 16:41 [facility] [id number]) Sensation Evaluation Gross Sensation Gross Sensation Left LE Impaired,Right LE Impaired Sensation Description Paresthesia PT-OP-J Posture/Palpation/Skin Start: 04/14/24 08:04 Freq: Status: Active Protocol: Document 04/14/24 09:01 [facility] (Rec: 04/14/24 16:41 [facility] [id number]) Palpation Assessment Location christie LE's Palpation Findings Edema Palpation Details redness, no increased warmth Skin Assessment Edema Assessment christie LE's Edema Type Pitting Edema Degree 4+ Edema Appearance Discolored,Shiny,Taut,Weeping Subjective Edema Description Pain,Tightness Comments reports scratched his left leg a couple days ago and has been weeping fluid; asked Dr. Madsen to come take a look at his leg. Dr. Madsen advised him on wound care and advised him to schedule with wound care clinic Other Assessments Skin Assessment Comments dry, flaky skin anterior shins , hyperkeratosis, 2 cm by 3cm open wound anterior left godinez weeping yellowish thin fluid, reddish discoloration lower legs and feet without excess warmth. Fibrosis christie lower legs. PT-OP-K Range of Motion Start: 04/14/24 08:04 Freq: Status: Active Protocol: Document 04/14/24 09:01 [facility] (Rec: 04/14/24 16:41 [facility] [id number]) Hip Goniometric Range of Motion Hip christie Hip ROM WFL No Comments mild decrease all motions Hip ROM Limitations Hip ROM Limitations Swelling Knee Goniometric Range of Motion Knee christie Knee ROM WFL No Knee ROM Limitations Knee ROM Limitations Swelling Ankle and Foot Goniometric Range of Motion Ankle and Foot christie Ankle/Foot ROM WFL No Dorsiflexion with Knee Flexed 5 Dorsiflexion with Knee Extended 0 Plantarflexion 15 Inversion 20 Ankle and Foot ROM Limitations ROM Limitations Soft Tissue Tightness,Swelling PT-OP-N Lymphedema Start: 04/14/24 08:04 Freq: Status: Active Protocol: Document 05/04/24 14:33 [facility] (Rec: 05/04/24 15:08 [facility] [id number]) Lymphedema Measurements Lower Extremity Circumference Measurements right MT Heads 27.5 cm Mid-foot 27.8 cm Medial Malleolus 34.6 cm 10 cm From Medial Malleolus 31.9 cm 20 cm From Medial Malleolus 42.7 cm 30 cm From Medial Malleolus 47.8 cm 40 cm From Medial Malleolus 41.8 cm 50 cm From Medial Malleolus 51.2 cm 60 cm From Medial Malleolus 62.2 cm Knee Joint 49.6 cm left MT Heads 26.9 cm Mid-foot 27.8 cm Medial Malleolus 32.5 cm 10 cm From Medial Malleolus 30.6 cm 20 cm From Medial Malleolus 42.3 cm 30 cm From Medial Malleolus 48 cm 40 cm From Medial Malleolus 43.5 cm 50 cm From Medial Malleolus 52.5 cm 60 cm From Medial Malleolus 64.6 cm Knee Joint 47.7 cm - waist 133.4 hips 138 PT-OP-Q Treatments Start: 04/14/24 08:04 Freq: Status: Active Protocol: Document 05/04/24 14:33 [facility] (Rec: 05/04/24 15:08 [facility] [id number]) Cardio Equipment Recumbent Stepper (Sci-Fit) Other no time today Lymphedema Treatment Manual Lymphatic Drainage Location christie LE's Duration 45 Comments sequential pneumatic pump at 40 mm Hg on side opposite to one being worked on. Lymphedema Wrapping Body Location christie LE's MTP's to upper thighs Materials Tricofix size G, Artiflex (24) , Komprex kidneys, Comprilan ( 6,8, 10, 10, 12), Patient compression shorts proximal compression over bandages to hold bandages up Sequential Lymphedema Exercises Location supine isometric and ankle pumps, LTR Duration 10 min PT-OP-T Assessment and Plan Start: 04/14/24 08:04 Freq: Status: Active Protocol: Document 05/04/24 14:33 [facility] (Rec: 05/04/24 15:08 [facility] [id number]) Physical Therapy Assessment Goals Three Impairment limited walking due to lymphedema, frequently uses cane, unable to work Short Term Goal (STG) Patient will be able to walk for 30 minutes without device without difficulty STG Duration 05/17/24 Harness Inspector Goal (LTG) Patient will be able to stand and walk sufficient to be able to return to work LTG Duration 07/15/24 Two Impairment lymphedema life impact scale 49% Short Term Goal (STG) decrease lymphedema life impact scale to no greater than 35% STG Duration 05/17/24 Harness Inspector Goal (LTG) decrease lymphedema life impact scale to no greater than 15% as measure of reduced lymphedema, improved function and quality of life. LTG Duration 07/15/24 One Impairment lymphedema christie LE's Short Term Goal (STG) Patient will be instructed in all aspects of lymphedema self -care to include skin care, elevation, self-massage, self- bandaging/compression options, and lymphedema exercises. STG Duration 05/17/24 Group Home Goal (LTG) Decrease patient?s lymphedema to a stable level (no increase or decrease greater than 1 cm over the course of 1 week), patient to be independent with all aspects of self-care for lymphedema, and will obtain appropriate compression garment for lymphedema management in the home. LTG Duration 07/15/24 Assessment Summary Assessment Circumferential measurements reveal continued decrease most measurements, patient compliant to lymphedema exercises, wearing compression , self massage, and elevation. He has scheduled an appointment with [facility] in [place] for consult for garment fitting end of next week. Also feel he will benefit from use of a sequential pneumatic pump for assistance with home management of his lymphedema, recommend pants style. Physical Therapy Plan Frequency and Duration Frequency of Treatment 20 visits Duration of treatment (weeks) 12 Plan of Care Start Date 04/14/24 Plan of Care End Date 07/15/24 Therapeutic Interventions Therapeutic Interventions Home Exercise Program, Lymphedema Management,Manual Therapy,Patient/Caregiver Education,Self-Care/Home Management,Soft Tissue Mobilization,Therapeutic Activities,Therapeutic Exercises Modalities Vasopneumatic Devices Next Visit Focus/Plan Next Note Type Treatment Note Next Visit Plan Continue CDT, facilitate patient obtaining appropriate compression garments and sequential pneumatic pump
--- NOTE | 2024-05-04 16:45 | PT.OTN ---
Current Diagnoses Lymphedema, not elsewhere classified (05/04/24) Soft tissue disorder, unspecified (05/04/24) Difficulty in walking, not elsewhere classified (05/04/24) Physical Therapy Treatment Note PT-OP-A Visit Information Start: 04/14/24 08:04 Freq: Status: Active Protocol: Document 05/04/24 14:33 [facility] (Rec: 05/04/24 15:08 [facility] [id number]) Out-Patient Physical Therapy Visit Information Visit Information Visit Type Treatment Note Visit Start Time 14:33 Visit Stop Time 16:00 Visit Number 6 Evaluation Information Evaluation Date 04/14/24 PT-OP-B Current Condition Start: 04/14/24 08:04 Freq: Status: Active Protocol: Document 05/04/24 14:33 [facility]AK (Rec: 05/04/24 15:08 [facility] [id number]) Current Condition History of Current Condition Onset Date December 2023 Current Complaints christie LE swelling History of Current Condition Acute onset swelling christie LE's an scrotum. , has seen parliamentary counsel (negative for any cardiac involvement), vascular specialist (tests negative, veins good, flow good), CT scans negative christie groin lymph nodes enlarged, have decreased in size some per cancer doc. Another scan in 6 months. Sees retail supervisor 05/02/24 due to low calcium levels. Did have scrotal edema; wore jock strap; scrotal swelling better . Feet still very swollen, legs red, hips still swollen, states now has difficulty fitting in seats. . Uses a cane at times for walking. Has compression stockings (knee high) and Juzo wraps (lower legs only). Cant wear shoes. 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 Trying to wear compression, trying to increase his walking. Prior Treatments and Tests as above Future Testing and Treatments Planned retail supervisor 05/02/24 PT-OP-C Subjective Start: 04/14/24 08:04 Freq: Status: Active Protocol: Document 05/04/24 14:33 SAK (Rec: 05/04/24 15:08 [facility] [id number]) OP-PT Subjective Patient Comments Patient Comments Left bandaging on for 1 day, left toe wraps on until last night. Then wore compression wraps at home, wore knee high compression stockings to PT. Overall improving. Right godinez seems to be healing, no more drainage. PT-OP-G Mobility & Gait Start: 04/14/24 08:04 Freq: Status: Active Protocol: Document 04/14/24 09:01 [facility] (Rec: 04/14/24 16:41 [facility] [id number]) OP Gait Assessment Gait Gait Assistance Required: Independent Assistive Devices Assistive Device None,Straight Cane Gait Deviations General Gait Pattern Decreased Stride Length, Decreased Feet Clearance PT-OP-H Neuro Start: 04/14/24 08:04 Freq: Status: Active Protocol: Document 04/14/24 09:01 [facility] (Rec: 04/14/24 16:41 [facility] [id number]) Sensation Evaluation Gross Sensation Gross Sensation Left LE Impaired,Right LE Impaired Sensation Description Paresthesia PT-OP-J Posture/Palpation/Skin Start: 04/14/24 08:04 Freq: Status: Active Protocol: Document 04/14/24 09:01 [facility] (Rec: 04/14/24 16:41 [facility] [id number]) Palpation Assessment Location christie LE's Palpation Findings Edema Palpation Details redness, no increased warmth Skin Assessment Edema Assessment christie LE's Edema Type Pitting Edema Degree 4+ Edema Appearance Discolored,Shiny,Taut,Weeping Subjective Edema Description Pain,Tightness Comments reports scratched his left leg a couple days ago and has been weeping fluid; asked Dr. Madsen to come take a look at his leg. Dr. Madsen advised him on wound care and advised him to schedule with wound care clinic Other Assessments Skin Assessment Comments dry, flaky skin anterior shins , hyperkeratosis, 2 cm by 3cm open wound anterior left godinez weeping yellowish thin fluid, reddish discoloration lower legs and feet without excess warmth. Fibrosis christie lower legs. PT-OP-K Range of Motion Start: 04/14/24 08:04 Freq: Status: Active Protocol: Document 04/14/24 09:01 [facility] (Rec: 04/14/24 16:41 [facility] [id number]) Hip Goniometric Range of Motion Hip christie Hip ROM WFL No Comments mild decrease all motions Hip ROM Limitations Hip ROM Limitations Swelling Knee Goniometric Range of Motion Knee christie Knee ROM WFL No Knee ROM Limitations Knee ROM Limitations Swelling Ankle and Foot Goniometric Range of Motion Ankle and Foot christie Ankle/Foot ROM WFL No Dorsiflexion with Knee Flexed 5 Dorsiflexion with Knee Extended 0 Plantarflexion 15 Inversion 20 Ankle and Foot ROM Limitations ROM Limitations Soft Tissue Tightness,Swelling PT-OP-N Lymphedema Start: 04/14/24 08:04 Freq: Status: Active Protocol: Document 05/04/24 14:33 [facility] (Rec: 05/04/24 15:08 [facility] [id number]) Lymphedema Measurements Lower Extremity Circumference Measurements right MT Heads 27.5 cm Mid-foot 27.8 cm Medial Malleolus 34.6 cm 10 cm From Medial Malleolus 31.9 cm 20 cm From Medial Malleolus 42.7 cm 30 cm From Medial Malleolus 47.8 cm 40 cm From Medial Malleolus 41.8 cm 50 cm From Medial Malleolus 51.2 cm 60 cm From Medial Malleolus 62.2 cm Knee Joint 49.6 cm left MT Heads 26.9 cm Mid-foot 27.8 cm Medial Malleolus 32.5 cm 10 cm From Medial Malleolus 30.6 cm 20 cm From Medial Malleolus 42.3 cm 30 cm From Medial Malleolus 48 cm 40 cm From Medial Malleolus 43.5 cm 50 cm From Medial Malleolus 52.5 cm 60 cm From Medial Malleolus 64.6 cm Knee Joint 47.7 cm - waist 133.4 hips 138 PT-OP-Q Treatments Start: 04/14/24 08:04 Freq: Status: Active Protocol: Document 05/04/24 14:33 [facility] (Rec: 05/04/24 15:08 [facility] [id number]) Cardio Equipment Recumbent Stepper (Sci-Fit) Other no time today Lymphedema Treatment Manual Lymphatic Drainage Location christie LE's Duration 45 Comments sequential pneumatic pump at 40 mm Hg on side opposite to one being worked on. Lymphedema Wrapping Body Location christie LE's MTP's to upper thighs Materials Tricofix size G, Artiflex (24) , Komprex kidneys, Comprilan ( 6,8, 10, 10, 12), Patient compression shorts proximal compression over bandages to hold bandages up Sequential Lymphedema Exercises Location supine isometric and ankle pumps, LTR Duration 10 min PT-OP-T Assessment and Plan Start: 04/14/24 08:04 Freq: Status: Active Protocol: Document 05/04/24 14:33 [facility] (Rec: 05/04/24 15:08 [facility] [id number]) Physical Therapy Assessment Goals Three Impairment limited walking due to lymphedema, frequently uses cane, unable to work Short Term Goal (STG) Patient will be able to walk for 30 minutes without device without difficulty STG Duration 05/17/24 Biology Tutor Goal (LTG) Patient will be able to stand and walk sufficient to be able to return to work LTG Duration 07/15/24 Two Impairment lymphedema life impact scale 49% Short Term Goal (STG) decrease lymphedema life impact scale to no greater than 35% STG Duration 05/17/24 Biology Tutor Goal (LTG) decrease lymphedema life impact scale to no greater than 15% as measure of reduced lymphedema, improved function and quality of life. LTG Duration 07/15/24 One Impairment lymphedema christie LE's Short Term Goal (STG) Patient will be instructed in all aspects of lymphedema self -care to include skin care, elevation, self-massage, self- bandaging/compression options, and lymphedema exercises. STG Duration 05/17/24 Residential Goal (LTG) Decrease patient?s lymphedema to a stable level (no increase or decrease greater than 1 cm over the course of 1 week), patient to be independent with all aspects of self-care for lymphedema, and will obtain appropriate compression garment for lymphedema management in the home. LTG Duration 07/15/24 Assessment Summary Assessment Circumferential measurements reveal continued decrease most measurements, patient compliant to lymphedema exercises, wearing compression , self massage, and elevation. Continue in PT with bandaging of toes plus feet to mid thigh, wearing lightweight compression shorts to help hold bandages up. He has scheduled an appointment with [facility] in [place] for consult for garment fitting end of next week. Also feel he will benefit from use of a sequential pneumatic pump for assistance with home management of his lymphedema, recommend pants style. For compression garments feel he will benefit from either thigh high plus compression shorts or full length tights. Patient would prefer closed toe due to work. Feel he may also benefit from toe caps. Feel class III compression garment would be most appropriate for this patient if tolerated. He has velcro wrap lower leg garments provided through wound care and has purchased his own wraps for his feet that he uses at home but will be unable to wear at work. Feel he would also benefit from night garments for christie LE lymphedema management. Physical Therapy Plan Frequency and Duration Frequency of Treatment 20 visits Duration of treatment (weeks) 12 Plan of Care Start Date 04/14/24 Plan of Care End Date 07/15/24 Therapeutic Interventions Therapeutic Interventions Home Exercise Program, Lymphedema Management,Manual Therapy,Patient/Caregiver Education,Self-Care/Home Management,Soft Tissue Mobilization,Therapeutic Activities,Therapeutic Exercises Modalities Vasopneumatic Devices Next Visit Focus/Plan Next Note Type Treatment Note Next Visit Plan Continue CDT, facilitate patient obtaining appropriate compression garments and sequential pneumatic pump
--- NOTE | 2024-05-23 09:57 | PT.OTN ---
Current Diagnoses Lymphedema, not elsewhere classified (05/23/24) Soft tissue disorder, unspecified (05/23/24) Difficulty in walking, not elsewhere classified (05/23/24) Physical Therapy Treatment Note PT-OP-A Visit Information Start: 04/14/24 08:04 Freq: Status: Active Protocol: Document 05/23/24 12:57 [facility] (Rec: 05/23/24 14:08 [facility] [id number]) Out-Patient Physical Therapy Visit Information Visit Information Visit Type Treatment Note Visit Start Time 12:59 Visit Stop Time 14:27 Visit Number 6 Evaluation Information Evaluation Date 04/14/24 PT-OP-B Current Condition Start: 04/14/24 08:04 Freq: Status: Active Protocol: Document 05/23/24 12:57 [facility] (Rec: 05/23/24 14:08 [facility] [id number]) Current Condition History of Current Condition Onset Date December 2023 Current Complaints christie LE swelling History of Current Condition Acute onset swelling christie LE's an scrotum. , has seen water pipe installer (negative for any cardiac involvement), vascular specialist (tests negative, veins good, flow good), CT scans negative christie groin lymph nodes enlarged, have decreased in size some per cancer doc. Another scan in 6 months. 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 Did have scrotal edema; wore jock strap; scrotal swelling better . Feet still very swollen, legs red, hips still swollen, states now has difficulty fitting in seats. . Uses a cane at times for walking. Has compression stockings (knee high) and Juzo wraps (lower legs only). Cant wear shoes. 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 Trying to wear compression, trying to increase his walking. Prior Treatments and Tests as above Future Testing and Treatments Planned off premise service representative 05/02/24 PT-OP-C Subjective Start: 04/14/24 08:04 Freq: Status: Active Protocol: Document 05/23/24 12:57 [facility] (Rec: 05/23/24 14:08 [facility] [id number]) OP-PT Subjective Patient Comments Patient Comments Was sick last week, couldn't come in for PT and was unable to get other appointments due to PT schedule. Hasn't heard from [facility], waiting for further information from doctor so no pump yet. Hasn't had appointment yet with [facility] yet, they have to get insurance approval before scheduling appontment so has been delayed. Has been wearing foot wraps and lower leg wraps that he purchased on his own, biggest challenges are with ankles Hasn't bandaged, too difficult. Wanting to go back to work soon but unable to wear wraps in shoes. Has looked online at toe caps, cost prohibitive right now. Hasn't worn compression yet today. PT-OP-G Mobility & Gait Start: 04/14/24 08:04 Freq: Status: Active Protocol: Document 04/14/24 09:01 [facility] (Rec: 04/14/24 16:41 [facility] [id number]) OP Gait Assessment Gait Gait Assistance Required: Independent Assistive Devices Assistive Device None,Straight Cane Gait Deviations General Gait Pattern Decreased Stride Length, Decreased Feet Clearance PT-OP-H Neuro Start: 04/14/24 08:04 Freq: Status: Active Protocol: Document 04/14/24 09:01 [facility] (Rec: 04/14/24 16:41 [facility] [id number]) Sensation Evaluation Gross Sensation Gross Sensation Left LE Impaired,Right LE Impaired Sensation Description Paresthesia PT-OP-J Posture/Palpation/Skin Start: 04/14/24 08:04 Freq: Status: Active Protocol: Document 04/14/24 09:01 [facility] (Rec: 04/14/24 16:41 [facility] [id number]) Palpation Assessment Location christie LE's Palpation Findings Edema Palpation Details redness, no increased warmth Skin Assessment Edema Assessment christie LE's Edema Type Pitting Edema Degree 4+ Edema Appearance Discolored,Shiny,Taut,Weeping Subjective Edema Description Pain,Tightness Comments reports scratched his left leg a couple days ago and has been weeping fluid; asked Dr. Madsen to come take a look at his leg. Dr. Madsen advised him on wound care and advised him to schedule with wound care clinic Other Assessments Skin Assessment Comments dry, flaky skin anterior shins , hyperkeratosis, 2 cm by 3cm open wound anterior left godinez weeping yellowish thin fluid, reddish discoloration lower legs and feet without excess warmth. Fibrosis christie lower legs. PT-OP-K Range of Motion Start: 04/14/24 08:04 Freq: Status: Active Protocol: Document 04/14/24 09:01 [facility] (Rec: 04/14/24 16:41 [facility] [id number]) Hip Goniometric Range of Motion Hip christie Hip ROM WFL No Comments mild decrease all motions Hip ROM Limitations Hip ROM Limitations Swelling Knee Goniometric Range of Motion Knee christie Knee ROM WFL No Knee ROM Limitations Knee ROM Limitations Swelling Ankle and Foot Goniometric Range of Motion Ankle and Foot christie Ankle/Foot ROM WFL No Dorsiflexion with Knee Flexed 5 Dorsiflexion with Knee Extended 0 Plantarflexion 15 Inversion 20 Ankle and Foot ROM Limitations ROM Limitations Soft Tissue Tightness,Swelling PT-OP-N Lymphedema Start: 04/14/24 08:04 Freq: Status: Active Protocol: Document 05/23/24 12:57 [facility] (Rec: 05/23/24 14:08 [facility] [id number]) Lymphedema Measurements Lower Extremity Circumference Measurements right MT Heads 28.6 cm Mid-foot 28.9 cm Medial Malleolus 34.7 cm 10 cm From Medial Malleolus 31.5 cm 20 cm From Medial Malleolus 42.9 cm 30 cm From Medial Malleolus 48.7 cm 40 cm From Medial Malleolus 43 cm 50 cm From Medial Malleolus 52.5 cm 60 cm From Medial Malleolus 64.3 cm Knee Joint 49.2 cm left MT Heads 26.2 cm Mid-foot 28.5 cm Medial Malleolus 33.7 cm 10 cm From Medial Malleolus 30.5 cm 20 cm From Medial Malleolus 42.1 cm 30 cm From Medial Malleolus 50 cm 40 cm From Medial Malleolus 44.5 cm 50 cm From Medial Malleolus 52 cm 60 cm From Medial Malleolus 65 cm Knee Joint 48.4 cm PT-OP-Q Treatments Start: 04/14/24 08:04 Freq: Status: Active Protocol: Document 05/23/24 12:57 [facility] (Rec: 05/23/24 14:08 [facility] [id number]) Lymphedema Treatment Manual Lymphatic Drainage Location christie LE's Duration 45 Comments sequential pneumatic pump at 40 mm Hg on side opposite to one being worked on. Lymphedema Wrapping Body Location christie LE's MTP's to upper thighs Materials Tricofix size G, Artiflex (24) , Komprex kidneys, Comprilan ( 6,8, 10, 10, 12), Patient compression shorts proximal compression over bandages to hold bandages up Sequential Lymphedema Exercises Location supine isometric and ankle pumps, LTR Duration 10 min Other Other Emphasis on importance of consistent wearing of compression, doing exercises and self massage, elevation and skin care. Try layering of current compression stockings and wraps as well as trying to bandage toes if at all possible (difficult for patient to reach) PT-OP-T Assessment and Plan Start: 04/14/24 08:04 Freq: Status: Active Protocol: Document 05/23/24 12:57 [facility] (Rec: 05/23/24 14:08 [facility] [id number]) Physical Therapy Assessment Goals Three Impairment limited walking due to lymphedema, frequently uses cane, unable to work Short Term Goal (STG) Patient will be able to walk for 30 minutes without device without difficulty STG Duration 05/17/24 Contact Center Professional Goal (LTG) Patient will be able to stand and walk sufficient to be able to return to work LTG Duration 07/15/24 Two Impairment lymphedema life impact scale 49% Short Term Goal (STG) decrease lymphedema life impact scale to no greater than 35% STG Duration 05/17/24 [facility] Goal (LTG) decrease lymphedema life impact scale to no greater than 15% as measure of reduced lymphedema, improved function and quality of life. LTG Duration 07/15/24 One Impairment lymphedema christie LE's Short Term Goal (STG) Patient will be instructed in all aspects of lymphedema self -care to include skin care, elevation, self-massage, self- bandaging/compression options, and lymphedema exercises. STG Duration 05/17/24 Contact Center Professional Goal (LTG) Decrease patient?s lymphedema to a stable level (no increase or decrease greater than 1 cm over the course of 1 week), patient to be independent with all aspects of self-care for lymphedema, and will obtain appropriate compression garment for lymphedema management in the home. LTG Duration 07/15/24 Assessment Summary Assessment Circumferential measurements variable, mostly stable, though many increased Patient did not yet make appointment with [facility] due to waiting for insurance approval, called during treatment and made appointment for 06/13/24. Has been wearing knee high compression stockings and foot and leg velcro wraps. Toes not wrapped or bandaged, has no toe caps. Physical Therapy Plan Frequency and Duration Frequency of Treatment 20 visits Duration of treatment (weeks) 12 Plan of Care Start Date 04/14/24 Plan of Care End Date 07/15/24 Therapeutic Interventions Therapeutic Interventions Home Exercise Program, Lymphedema Management,Manual Therapy,Patient/Caregiver Education,Self-Care/Home Management,Soft Tissue Mobilization,Therapeutic Activities,Therapeutic Exercises Modalities Vasopneumatic Devices Next Visit Focus/Plan Next Note Type Treatment Note Next Visit Plan Continue CDT, facilitate patient obtaining appropriate compression garments and sequential pneumatic pump
--- NOTE | 2024-06-07 11:43 | PT-OP ANOTE ---
cancelled appointment via electronic scheduling system.
--- NOTE | 2024-10-24 10:15 | PT.OPDS ---
Current Diagnoses Lymphedema, not elsewhere classified (05/23/24) Soft tissue disorder, unspecified (05/23/24) Difficulty in walking, not elsewhere classified (05/23/24) Visit Care Team Role Provider Type Leigha Parisi PA-C Primary Care Provider Non-Staff Specialty: [facility] [address] [facility] [address], [place], [address] Fax: Email: Chele De La Paz PA-C Family Provider Non-Staff Specialty: Medical Address: [address] [place], [address] Email: Luis Miguel Madsen MD Attending Provider Physician Referring Provider Specialty: Wound Care Address: [address] [place] [address], [address] Email: [email or web address] Visit Number Visit Number 6 Discharge Summary PT-OP-B Current Condition Start: 04/14/24 08:04 Freq: Status: Active Protocol: Document 05/23/24 12:57 SAK (Rec: 05/23/24 14:08 SAK [id number]) Current Condition History of Current Condition Onset Date December 2023 Current Complaints christie LE swelling History of Current Condition Acute onset swelling christie LE's an scrotum. , has seen job service specialist (negative for any cardiac involvement), vascular specialist (tests negative, veins good, flow good), CT scans negative christie groin lymph nodes enlarged, have decreased in size some per cancer doc. Another scan in 6 months. Sees financial underwriter 05/02/24 due to low calcium levels. Did have scrotal edema; wore jock strap; scrotal swelling better . Feet still very swollen, legs red, hips still swollen, states now has difficulty fitting in seats. . Uses a cane at times for walking. Has compression stockings (knee high) and Juzo wraps (lower legs only). Cant wear shoes. 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 Trying to wear compression, trying to increase his walking. Prior Treatments and Tests as above Future Testing and Treatments Planned financial underwriter 9/16/24 PT-OP-C Subjective Start: 04/14/24 08:04 Freq: Status: Active Protocol: Document 05/23/24 12:57 SAK (Rec: 05/23/24 14:08 [facility] [id number]) OP-PT Subjective Patient Comments Patient Comments Was sick last week, couldn't come in for PT and was unable to get other appointments due to PT schedule. Hasn't heard from [facility], waiting for further information from doctor so no pump yet. Hasn't had appointment yet with [facility] yet, they have to get insurance approval before scheduling appontment so has been delayed. Has been wearing foot wraps and lower leg wraps that he purchased on his own, biggest challenges are with ankles Hasn't bandaged, too difficult. Wanting to go back to work soon but unable to wear wraps in shoes. Has looked online at toe caps, cost prohibitive right now. Hasn't worn compression yet today. PT-OP-G Mobility & Gait Start: 04/14/24 08:04 Freq: Status: Active Protocol: Document 04/14/24 09:01 [facility] (Rec: 04/14/24 16:41 [facility] [id number]) OP Gait Assessment Gait Gait Assistance Required: Independent Assistive Devices Assistive Device None,Straight Cane Gait Deviations General Gait Pattern Decreased Stride Length, Decreased Feet Clearance PT-OP-H Neuro Start: 04/14/24 08:04 Freq: Status: Active Protocol: Document 04/14/24 09:01 [facility] (Rec: 04/14/24 16:41 [facility] [id number]) Sensation Evaluation Gross Sensation Gross Sensation Left LE Impaired,Right LE Impaired Sensation Description Paresthesia PT-OP-J Posture/Palpation/Skin Start: 04/14/24 08:04 Freq: Status: Active Protocol: Document 04/14/24 09:01 [facility] (Rec: 04/14/24 16:41 [facility] [id number]) Palpation Assessment Location christie LE's Palpation Findings Edema Palpation Details redness, no increased warmth Skin Assessment Edema Assessment christie LE's Edema Type Pitting Edema Degree 4+ Edema Appearance Discolored,Shiny,Taut,Weeping Subjective Edema Description Pain,Tightness Comments reports scratched his left leg a couple days ago and has been weeping fluid; asked Dr. Madsen to come take a look at his leg. Dr. Madsen advised him on wound care and advised him to schedule with wound care clinic Other Assessments Skin Assessment Comments dry, flaky skin anterior shins , hyperkeratosis, 2 cm by 3cm open wound anterior left godinez weeping yellowish thin fluid, reddish discoloration lower legs and feet without excess warmth. Fibrosis christie lower legs. PT-OP-K Range of Motion Start: 04/14/24 08:04 Freq: Status: Active Protocol: Document 04/14/24 09:01 SAK (Rec: 04/14/24 16:41 [facility] [id number]) Hip Goniometric Range of Motion Hip christie Hip ROM WFL No Comments mild decrease all motions Hip ROM Limitations Hip ROM Limitations Swelling Knee Goniometric Range of Motion Knee christie Knee ROM WFL No Knee ROM Limitations Knee ROM Limitations Swelling Ankle and Foot Goniometric Range of Motion Ankle and Foot christie Ankle/Foot ROM WFL No Dorsiflexion with Knee Flexed 5 Dorsiflexion with Knee Extended 0 Plantarflexion 15 Inversion 20 Ankle and Foot ROM Limitations ROM Limitations Soft Tissue Tightness,Swelling PT-OP-N Lymphedema Start: 04/14/24 08:04 Freq: Status: Active Protocol: Document 05/23/24 12:57 SAK (Rec: 05/23/24 14:08 [facility] [id number]) Lymphedema Measurements Lower Extremity Circumference Measurements right MT Heads 28.6 cm Mid-foot 28.9 cm Medial Malleolus 34.7 cm 10 cm From Medial Malleolus 31.5 cm 20 cm From Medial Malleolus 42.9 cm 30 cm From Medial Malleolus 48.7 cm 40 cm From Medial Malleolus 43 cm 50 cm From Medial Malleolus 52.5 cm 60 cm From Medial Malleolus 64.3 cm Knee Joint 49.2 cm left MT Heads 26.2 cm Mid-foot 28.5 cm Medial Malleolus 33.7 cm 10 cm From Medial Malleolus 30.5 cm 20 cm From Medial Malleolus 42.1 cm 30 cm From Medial Malleolus 50 cm 40 cm From Medial Malleolus 44.5 cm 50 cm From Medial Malleolus 52 cm 60 cm From Medial Malleolus 65 cm Knee Joint 48.4 cm PT-OP-T Assessment and Plan Start: 04/14/24 08:04 Freq: Status: Active Protocol: Document 10/24/24 10:15 SAK (Rec: 10/24/24 10:15 [facility] [id number]) Physical Therapy Plan Discharge Physical Therapy Discharge Reasons No Longer Attending PT
== END 2024-10-27 08:37 | disposition home or self-care (01) ==
LOC: PHYS 13:00
PROVIDERS: Family Provider Physician Assistant; PCP Physician Assistant Surgical; Referring Provider Surgery; Visit Provider Surgery
DX: I89.0 Lymphedema, not elsewhere classified (principal); R26.2 Difficulty in walking, not elsewhere classified; M79.9 Soft tissue disorder, unspecified
CPT/HCPCS: 29581; 97110; 97140; 97162; 97530; 97535